=== PATIENT | male | born 1955 | race Caucasian/White ===

== ENCOUNTER 2018-03-02 14:35 | Outpatient (REF) | payer BC, SELFPAY ==
[2018-03-02 16:02] LABS: COMMENT (LAB VIEW ONLY) 84.26 mg/dL; Microalb ug/mg Crea 17.9 ug/mg Cr
[2018-03-02 19:31] LABS: Anion Gap 14.9 mmol/L (3-11); BUN 16 mg/dL (7-18); CO2 22.1 mmol/L (21.0-32.0); CREATININE 0.85 mg/dL (0.70-1.30); Calcium 9.3 mg/dL (8.5-10.1); Chloride 100 mmol/L (98-107); Glucose 296 mg/dL (70-100); Sodium 137 mmol/L (136-145)
== END 2018-03-02 14:55 ==
LOC: LBN 14:35
PROVIDERS: PCP Student in an Organized Health Care Education/Training Program; Visit Provider Student in an Organized Health Care Education/Training Program
CPT/HCPCS: 80048; 82043; 82570

== ENCOUNTER 2018-10-28 12:07 | Emergency (ER) | payer OTHER, BC, SELFPAY ==
[2018-10-28 12:00] VITALS: BP 136/84; PULSE 58; RESP 16; TEMP 36.7; O2SAT 97
[2018-10-28] MEDS: Lidocaine 5% Patch 1 PATCH (12:10)
--- NOTE | 2018-10-28 12:34 | DI.RAD_ITS ---
SYMPTOMS/DIAGNOSIS: BACK PAIN, POSTERIOR LOWER RIB PAIN S/P FALL PA AND LATERAL CHEST AND RIGHT RIBS: Comparison is made with chest x-ray of June,. The heart size is normal. The lungs appear clear. No pneumothorax is identified. There are old right rib fractures. No acute fractures are identified. There are mild degenerative changes of the right shoulder, as well as osteophytes in the thoracic spine. IMPRESSION: Old healed upright rib fractures. No acute rib fracture is identified. LUMBAR SPINE: There is no fracture, spondylolysis or spondylolisthesis. There are prominent endplate osteophytes at multiple levels. Disc space narrowing is noted, greatest on the right side at L3-4 and L4-5. IMPRESSION: Degenerative changes. No acute abnormality.
[2018-10-28] MEDS: Ketorolac 30 MG/ML VIAL IVP (12:44)
[2018-10-28] MEDS: Cyclobenzaprine 10 MG TAB PO (12:45)
--- NOTE | 2018-10-28 13:49 | DI.VRAD_ITS ---
EXAM: XR Right Ribs EXAM DATE/TIME: 10/28/2018 12:36 PM CLINICAL HISTORY: 63 years old, male; Other: Fall, posterior lower rib pain TECHNIQUE: Imaging protocol: XR Right ribs. Views: 2 views. COMPARISON: No relevant prior studies available. FINDINGS: Bones/joints: Multiple healed right rib fractures. No acute right rib fractures. Soft tissues: Normal. IMPRESSION: 1. Multiple healed right rib fractures. 2. No acute right rib fractures. EXAM: XR Chest, 2 Views EXAM DATE/TIME: 10/28/2018 12:36 PM CLINICAL HISTORY: 63 years old, male; Other: Fall, posterior lower rib pain TECHNIQUE: Imaging protocol: XR of the chest, 2 views. COMPARISON: No relevant prior studies available. FINDINGS: Lungs: Unremarkable. No consolidation. Pleural space: Unremarkable. No pleural effusion. No pneumothorax. Heart/Mediastinum: Unremarkable. No cardiomegaly. Bones/joints: Mild dextroscoliosis. Moderate thoracic spondylosis. IMPRESSION: No acute findings. Dictated and Authenticated by: Tyrone Caceres MD. Ordering:LIZY You MD
--- NOTE | 2018-10-28 13:50 | DI.VRAD_ITS ---
EXAM: XR Lumbosacral Spine, 4 or 5 Views EXAM DATE/TIME: 10/28/2018 12:36 PM CLINICAL HISTORY: 63 years old, male; Other: Back pain, S/P fall TECHNIQUE: Imaging protocol: XR of the lumbosacral spine, 4 or 5 views. COMPARISON: No relevant prior studies available. FINDINGS: Vertebrae: Mild levoscoliosis. Moderate to severe multilevel spine degenerative changes including degenerative disc disease, spondylosis and facet degenerative changes. Soft tissues: Normal. IMPRESSION: No acute findings. Dictated and Authenticated by: Tyrone Caceres MD. Ordering:LIZY You MD
--- NOTE | 2018-10-28 14:03 | ED.GENADUL_ITS ---
Discharge Plan Disposition Patient Disposition: HOME Condition: Stable Discharge Details Chief Complaint: Nk/Back Pain Clinical Impression: Back pain due to injury Primary Care Provider: Bella Duff ED Provider: Avelino Scott Home Meds and New Rx's Prescriptions: New cyclobenzaprine 10 mg tablet 10 mg PO TID PRN (Reason: muscle spasm) Qty: 10 RF: 0 Continued Lantus Solostar U-100 Insulin 100 unit/mL (3 mL) insulin pen 30 unit Sub-Q HS Qty: 5 RF: 2 metformin 500 mg tablet 500 mg PO HS Qty: 90 RF: 3 aspirin [Aspir-81] 81 MG tablet,delayed release (DR/EC) 81 mg PO DAILY RF: 0 magnesium oxide 500 MG tablet 500 mg PO DAILY Qty: 90 RF: 3 metformin 1,000 MG tablet 1,000 mg PO see instructions Qty: 180 RF: 3 atorvastatin [Lipitor] 40 mg tablet 40 mg PO DAILY Qty: 90 RF: 3 lisinopril 2.5 mg tablet 2.5 mg PO DAILY Qty: 90 RF: 3 omeprazole 40 mg capsule,delayed release(DR/EC) 40 mg PO DAILY Qty: 90 RF: 1 (DME) blood sugar diagnostic strip See Dose Instructions .ROUTE .MEDSUPPLY Qty: 180 RF: 3 (DME) lancets [OneTouch Delica Lancets] 33 gauge misc See Dose Instructions .ROUTE .MEDSUPPLY Qty: 200 RF: 3 (DME) pen needle, diabetic [Pen Needle] 31 gauge x 5/16 needle 1 ea Miscellaneous HS Qty: 100 RF: 3 Discharge Instructions Instructions: Back Pain (ED) Additional Instructions: He may continue to take [id number] pain medication as needed for discomfort along with prescribed medications. Due to you being on steroids please watch your blood sugar closely and stop steroids immediately if your sugars become extremely high or you have severe symptoms of hyperglycemia. You should follow-up with your primary care provider for reassessment if not improving over the next couple days. Stand Alone Forms: Work Release Referrals: Bella Duff, [Primary Care Provider] - (As needed for reassessment or if not improving) Discharge Data Discharge Date/Time-TO BE ENTERED AT DEPARTURE: 10/28/18 14:35 Medical Decision Making Patient presenting the emergency department chief complaint of back pain. Patient states that he fell at work 2-1/2 weeks ago and had slowly been improving but today when getting up and walking he felt a severe sharp spasm of his right lower back. Patient denies any other new recent injury or trauma, saddle anesthesia, fever chills, change in bowel or bladder function. Patient does have mostly paraspinal spasm and soft tissue tenderness to the right upper lumbar and lower thoracic with some rib tenderness noted on the right. Given the patient did have trauma do feel that radiological imaging is needed. Pending results patient given Flexeril and ketorolac for pain control. Review of radiological imaging shows old rib fractures but no acute rib fractures and degenerative disc disease of the back but no acute findings. Patient reassessed and states significant improvement in spasms that he felt comfortable going home. Patient was placed upon 20 mg of prednisone just for the next 3 days but closely precaution patient about elevated blood sugars while on medication. Otherwise patient prescribed Flexeril to use for spasms and to continue to use [id number] pain medication as needed. Return precautions discussed. After discussion of diagnosis and plan of care patient has no further needs, questions, or concerns and states clear understanding to return to the emergency department for any worsening symptoms. HPI General Mode of arrival: ambulatory . Date/Time Provider Initiated Documentation: 10/28/18 12:14 . Limitations to Documentation: no limitations . Information obtained by: patient, family and RN notes reviewed . History of Present Illness 63 year old M presents to the emergency department with the chief complaint of Back pain/injury, described as moderate, with intensity rated at 7. Related Data Home Medications Medication Instructions Recorded Confirmed aspirin [Aspir-81] 81 mg PO DAILY tab-cap 05/05/15 10/28/18 magnesium oxide 500 mg PO DAILY #90 tab-cap 02/03/16 10/28/18 metformin 1,000 mg PO see instructions #180 09/26/17 10/28/18 tab-cap atorvastatin 40 mg tablet 40 mg PO DAILY #90 tab-cap 12/22/17 10/28/18 lisinopril 2.5 mg tablet 2.5 mg PO DAILY #90 tab-cap 12/22/17 10/28/18 omeprazole 40 mg capsule,delayed 40 mg PO DAILY #90 tab-cap 04/04/18 10/28/18 release blood sugar diagnostic #180 each 07/06/18 10/28/18 lancets 33 gauge #200 each 07/06/18 10/28/18 pen needle, diabetic 31 gauge x #100 ndl 07/06/18 10/28/1808/10 insulin glargine 100 unit/mL (3 30 unit SUB-Q HS #5 ml 07/22/18 10/28/18 mL) subcutaneous pen metformin 500 mg tablet 500 mg PO HS #90 tab 09/07/18 10/28/18 cyclobenzaprine 10 mg PO TID PRN #10 tab 10/28/18 Previous Rx's Medication Instructions Recorded metformin 1,000 mg PO see instructions #180 09/26/17 tab-cap atorvastatin 40 mg tablet 40 mg PO DAILY #90 tab-cap 12/22/17 lisinopril 2.5 mg tablet 2.5 mg PO DAILY #90 tab-cap 12/22/17 omeprazole 40 mg capsule,delayed 40 mg PO DAILY #90 tab-cap 04/04/18 release blood sugar diagnostic #180 each 07/06/18 lancets 33 gauge #200 each 07/06/18 pen needle, diabetic 31 gauge x #100 ndl 07/06/1808/10 insulin glargine 100 unit/mL (3 30 unit SUB-Q HS #5 ml 07/22/18 mL) subcutaneous pen metformin 500 mg tablet 500 mg PO HS #90 tab 09/07/18 cyclobenzaprine 10 mg PO TID PRN #10 tab 10/28/18 Allergies Allergy/AdvReac Type Severity Reaction Status Date / Time No Known Allergies Allergy Verified 10/28/18 12:05 General Stated Complaint: Nk/Back Pain ZULY: 3 Review of Systems Constitutional Denies chills and Denies fever(s) Cardiovascular Denies chest pain and Denies dyspnea on exertion Respiratory Denies cough and Denies dyspnea on exertion Gastrointestinal Denies abdominal pain, Denies change in bowel habits, Denies diarrhea, Denies nausea and Denies vomiting Genitourinary Denies difficulty urinating and Denies urinary incontinence Musculoskeletal Reports as per HPI and Reports back pain Neurologic Denies sensory deficit PFSH Surgical History Removal of Implant, deep (04/28/16) Social History Smoking/Tobacco Use Status: Never Alcohol Intake: never Details: No ETOH since 1989 Drug use: Never Substance use type: does not use Adopted: No Foster care: No Household members: spouse and children Housing: house Number of Children: 2 Communication Needs: None Do you need help understanding health information?: Never current occupation: maintenance [employer] Pets and animals: Yes (2) Pets and animals: cat(s) Sexually active: Yes Do you think of yourself as: straight/heterosexual Current gender identity: male What is your relationship status?: Panel score (0-1 are the most socially isolated patients): 1 What type of physical activity do you participate in: walking Duration: 30-45 minutes/day Frequency: 5-6 times per week Laney/Mandaen: Christian Seatbelt use: always Drive intox or ride w/intox 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 Working smoke detector in home: Yes Fire extinguisher in home: Yes Carbon monox detector in home: Yes Do you feel safe at home: Yes Do you feel safe in your relationship?: Yes Victim of physical abuse: No Victim of emotional abuse: No Victim of sexual abuse: No Exam Const General: cooperative and no acute distress Orientation: alert, awake and oriented x3 Neck Neck: normal visual inspection, full ROM and no meningeal signs Resp Effort & Inspection: normal respiratory effort Auscultation: clear to auscultation bilaterally Cardio Rate: regular rate Rhythm: regular rhythm Heart Sounds: S1 normal and S2 normal GI Palpation: no hepatosplenomegaly, no aortic enlargement, no masses and no pulsatile masses Back/Spine/Pelvis Thoracic/Lumbar Spine: thoracic and lumbar spine normal to inspection, straight leg raise negative bilaterally, No mass, pain with thoraco-lumbar ROM, paraspinal tenderness and lumbar spinal tenderness Pelvis: no buttock tenderness and no sciatic notch tenderness Neuro General: alert, awake, oriented x3, moves all extremities, normal light touch, pain and propioception and no focal motor deficits DTR's: Rt Patellar: 2+, Lt Patellar: 2+, Rt Ankle: 2+ and Lt Ankle: 2+ Course Vital Signs Temperature 36.7 C 10/28/18 12:00 Pulse 58 L 10/28/18 12:00 Respiratory Rate 16 10/28/18 12:00 Blood Pressure 136/84 10/28/18 12:00 Pulse Oximetry 97 10/28/18 12:00 Temperature 36.7 C 10/28/18 12:00 Temperature Source Temporal Artery Scan 10/28/18 12:00 Pulse 58 L 10/28/18 12:00 Respiratory Rate 16 10/28/18 12:00 Respiratory Effort Non-Labored 10/28/18 12:02 Blood Pressure 136/84 10/28/18 12:00 Blood Pressure Position Supine 10/28/18 12:00 Pulse Oximetry 97 10/28/18 12:00 Oxygen Delivery Method Room Air 10/28/18 12:00 Oxygen Flow Rate 0 10/28/18 12:00 Pain Level 6 10/28/18 12:44
[2018-10-28] MEDS: predniSONE 20 MG TAB PO (14:21)
[2018-10-28 14:28] VITALS: BP 123/72; PULSE 52; RESP 16; O2SAT 98
== END 2018-10-28 14:35 | disposition home or self-care (01) ==
PROVIDERS: Emergency Provider Nurse Practitioner Family; PCP Student in an Organized Health Care Education/Training Program
DX: M54.5 Low back pain (principal); M47.816 Spondylosis without myelopathy or radiculopathy, lumbar region; X50.9XXA Other and unspecified overexertion or strenuous movements or postures, initial encounter
CPT/HCPCS: 96374; 99284; 71046; 71100; 72110; J1885; J7512

== ENCOUNTER 2019-09-13 12:00 | Outpatient (REF) | payer BC, SELFPAY ==
[2019-09-13 21:30] LABS: ALT 30 U/L (16-63); AST 23 U/L (15-37); Albumin 4.1 g/dL (3.4-5.0); Alkaline Phosphatase 106 U/L (46-116); Anion Gap 10.5 mmol/L (3-11); BUN 22 mg/dL (7-18); Bilirubin, Total 1.5 mg/dL (0.2-1.0); CO2 25.5 mmol/L (21.0-32.0); CREATININE 1.35 mg/dL (0.70-1.30); Calcium 9.3 mg/dL (8.5-10.1); Calculated LDL 93 mg/dL (<100); Chloride 103 mmol/L (98-107); Cholesterol 160 mg/dL (<200); Estimated GFR 53.21 (mL/min/1.73m2); Glucose 166 mg/dL (74-106); HDL Cholesterol 55 mg/dL (40-60); Magnesium 1.8 mg/dL (1.8-2.4); Potassium 3.8 mmol/L (3.5-5.1); Sodium 139 mmol/L (136-145); TSH (W/Ref FT4) 2.33 uIU/mL (0.36-3.74); Total Protein 6.9 g/dL (6.4-8.2); Triglyceride 62 mg/dL (<150)
== END 2019-09-13 12:20 ==
LOC: LBN 12:00
PROVIDERS: PCP Student in an Organized Health Care Education/Training Program; Visit Provider Student in an Organized Health Care Education/Training Program
DX: E11.65 Type 2 diabetes mellitus with hyperglycemia (principal); E83.42 Hypomagnesemia; R11.2 Nausea with vomiting, unspecified; R19.7 Diarrhea, unspecified; R79.89 Other specified abnormal findings of blood chemistry; Z13.220 Encounter for screening for lipoid disorders
CPT/HCPCS: 80053; 80061; 83735; 84443

== ENCOUNTER 2019-12-20 02:07 | Outpatient (CLI) | payer BC, SELFPAY ==
--- NOTE | 2019-12-20 07:00 | DI.US_ITS ---
EXAM: US ABDOMEN CLINICAL HISTORY: RT FLANK AND RUQ PAIN,R10.11,R10.9,?LT HYDRO OR GB PATHOLOGY TECHNIQUE: Ultrasound abdomen performed using standard protocol. COMPARISON: No previous for comparison. FINDINGS: ABDOMINAL AORTA AND IVC: Visualized portions normal caliber. PANCREAS: Normal where visualized. LIVER: Normal. Hepatopedal flow in the Portal Vein. The liver measures 16.9 cm. GALLBLADDER: No evidence of cholelithiasis. No evidence of wall thickening. No pericholecystic fluid identified. BILIARY SYSTEM: Common bile duct measures 8 mm. No intrahepatic biliary ductal dilation. BARONE'S SIGN: Negative. KIDNEYS: Kidneys are symmetric in size. No evidence of renal calculi. No evidence of hydronephrosis. 0.8 cm round echogenic focus in the right kidney. This may represent a benign lesion such as an kolby omyolipoma. SPLEEN: Not enlarged. ASCITES: None seen. IMPRESSION: 1. No nephrolithiasis or cholelithiasis. No hydronephrosis. DATA REPOSITORY:
== END 2019-12-20 02:27 ==
PROVIDERS: PCP Student in an Organized Health Care Education/Training Program; Visit Provider Student in an Organized Health Care Education/Training Program
DX: R10.11 Right upper quadrant pain (principal); R10.9 Unspecified abdominal pain
CPT/HCPCS: 76700

== ENCOUNTER 2020-06-26 09:36 | Outpatient (CLI) | payer BC, SELFPAY | END 2020-06-26 09:37 | disposition home or self-care (01) | LOC: RT 09:39 | PROVIDERS: PCP Student in an Organized Health Care Education/Training Program; Visit Provider Student in an Organized Health Care Education/Training Program | CPT/HCPCS: 94762 ==

== ENCOUNTER 2020-06-30 04:36 | Outpatient (CLI) | payer BC, SELFPAY ==
[2020-06-30 12:41] LABS: Anion Gap 14.1 mmol/L (3-11); BUN 18 mg/dL (7-18); CO2 21.9 mmol/L (21.0-32.0); CREATININE 1.1 mg/dL (0.70-1.30); Calcium 9.2 mg/dL (8.5-10.1); Chloride 106 mmol/L (98-107); Glucose 146 mg/dL (74-106); Potassium 4.6 mmol/L (3.5-5.1); Sodium 142 mmol/L (136-145)
== END 2020-06-30 04:37 | disposition home or self-care (01) ==
LOC: LBO 04:36
PROVIDERS: PCP Student in an Organized Health Care Education/Training Program; Visit Provider Student in an Organized Health Care Education/Training Program
DX: R79.89 Other specified abnormal findings of blood chemistry (principal)
CPT/HCPCS: 36415; 80048

== ENCOUNTER 2020-12-17 00:35 | Outpatient (CLI) | payer BC, SELFPAY ==
[2020-12-17 09:53] LABS: HGB 15.4 g/dL (13.5-17.5); MCH 31.2 pg (27.0-33.0); MCHC 32.8 % (32.0-36.0); MCV 95.1 fL (80-95); Platelet Count 282 10^3/uL (130-400); RBC 4.94 10^6/uL (4.36-5.78); RDW 12.9 % (11.8-14.1); RDW-SD 45.2 fL
[2020-12-17 11:03] LABS: Calculated LDL 71 mg/dL (<100); Cholesterol 135 mg/dL (<200); Folate 7.2 ng/mL (8.6-20.0); HDL Cholesterol 53 mg/dL (40-60); Triglyceride 57 mg/dL (<150)
[2020-12-17 17:09] LABS: Vitamin B12 426 pg/mL (211-911)
== END 2020-12-17 00:36 | disposition home or self-care (01) ==
PROVIDERS: PCP Student in an Organized Health Care Education/Training Program; Visit Provider Student in an Organized Health Care Education/Training Program
DX: Z91.89 Other specified personal risk factors, not elsewhere classified; Z13.220 Encounter for screening for lipoid disorders; G62.9 Polyneuropathy, unspecified; G25.81 Restless legs syndrome; R25.1 Tremor, unspecified; G47.9 Sleep disorder, unspecified; R53.83 Other fatigue; K21.9 Gastro-esophageal reflux disease without esophagitis; E11.65 Type 2 diabetes mellitus with hyperglycemia; T38.3X5A Adverse effect of insulin and oral hypoglycemic [antidiabetic] drugs, initial encounter
CPT/HCPCS: 36415; 80061; 85027; 82607; 82746

== ENCOUNTER 2021-02-05 03:20 | Outpatient (CLI) | payer BC, SELFPAY ==
--- NOTE | 2021-02-05 09:00 | NS.NUTBLAN_ITS ---
Berto was referred for [facility] for diabetes self management education. DM meds: lantus 36 u at HS, 1000 mg metformin BID, 10 mg Jardiance qd. A1c (01/20/21): 8%, lipids wnl. Reports blood sugars all over the place. This is possible with current A1C if has high glycemic variability. Session today focused on how the Rik 2 continuous glucose monitor works, sensor placed and manager learning programed. Reviewed questions and provided diabetic education. Reviewed sick day rules and encouraged him to log meals and count carbohydrates for consistent intakes during day. Follow up scheduled for 02/17/21 at 9 am for data down load. Will fax glucose data to PCP at that time.
== END 2021-02-05 03:21 | disposition home or self-care (01) ==
PROVIDERS: PCP Student in an Organized Health Care Education/Training Program; Visit Provider Dietitian, Registered
DX: E11.9 Type 2 diabetes mellitus without complications (principal); Z79.4 Long term (current) use of insulin; Z79.84 Long term (current) use of oral hypoglycemic drugs; Z71.3 Dietary counseling and surveillance
CPT/HCPCS: 97802

== ENCOUNTER 2021-02-17 01:42 | Outpatient (CLI) | payer BC, SELFPAY ==
--- NOTE | 2021-02-17 09:00 | NS.NUTBLAN_ITS ---
Berto returns after wearing a Rik 2 Continuous Glucose Monitor for 14 days. DM Meds: 36 units lantus q HS, 10 mg jardiance qd, 1000 mg metformin BID Diet Recall: Ambulatory Glucose Profile: Dates: 02/04/21-02/17/21 Actual Goal Average Blood Sugar: 146 mg/dl 80-120 mg/dl Glucose Management Indicato: 6.8% < 7% Glucose Variability: 30.1% < 36% Time In Range (70-180 mg/dl) 81% >70% Below 70 mg/dl: 0% < 4% Below 54 mg/dl : 0% < 1% Above 180 mg/dl: 17% < 25% Above 250 mg/dl: 2% < 5% Overall, current life style and Dm medications managing diabetes in ideal parameters despite many menu items not ideal ( fried chicken, cookies, popcorn, ritz crackers). Reviewed glycemic excursions and identified foods that cause glucose elevations. Berto states that alarm on CGM is helpful as it helps him reduce his portions and makes him more aware of importance activity/exercise is to diabetes management. CGM an excellent tool for Berto and is helping him manage his diabetes with minimal insulin. His goal is to get off insulin all together. Encouraged him to continue to work with PCP and CGM. May be able to reduce basal insulin per PCP recommendations based on AGP report. If reducing lantus by 10%, recommend increasing Jaridiance to 25 mg qd. No follow up planned at this time. Will follow up prn.
== END 2021-02-17 01:43 | disposition home or self-care (01) ==
LOC: DS 01:43
PROVIDERS: PCP Student in an Organized Health Care Education/Training Program; Visit Provider Dietitian, Registered
DX: Z71.3 Dietary counseling and surveillance (principal); E11.9 Type 2 diabetes mellitus without complications; Z79.4 Long term (current) use of insulin; Z79.84 Long term (current) use of oral hypoglycemic drugs
CPT/HCPCS: 97803

== ENCOUNTER 2021-03-05 15:06 | Outpatient (REF) | payer BC, SELFPAY ==
[2021-03-05 18:04] LABS: Anion Gap 10.7 mmol/L (3-11); BUN 17 mg/dL (7-18); CO2 25.3 mmol/L (21.0-32.0); CREATININE 1.1 mg/dL (0.70-1.30); Calcium 9.1 mg/dL (8.5-10.1); Chloride 106 mmol/L (98-107); Glucose 118 mg/dL (74-106); Potassium 4.3 mmol/L (3.5-5.1); Sodium 142 mmol/L (136-145)
== END 2021-03-05 15:07 | disposition home or self-care (01) ==
LOC: LBN 15:06
PROVIDERS: PCP Student in an Organized Health Care Education/Training Program; Visit Provider Student in an Organized Health Care Education/Training Program
DX: R79.89 Other specified abnormal findings of blood chemistry (principal); Z79.1 Long term (current) use of non-steroidal anti-inflammatories (NSAID)
CPT/HCPCS: 80048

== ENCOUNTER 2021-03-05 15:27 | Outpatient (CLI) | payer BC, SELFPAY ==
--- NOTE | 2021-03-05 15:00 | DI.RAD_ITS ---
Exam(s) XR LUMBAR SPINE COMP W FLEX/EX EXAM: XR LUMBAR SPINE COMP W FLEX/EX CLINICAL HISTORY: eval new pain, flexion pain M54.40 LUMBARGO W/ SCIATICA. TECHNIQUE: 2D digital imaging was performed. COMPARISON: CR XR lumbar spine complete from 10/28/2018 FINDINGS: No evidence of fracture nor listhesis. No pars defects. Multilevel chronic degenerative disc diseas e again noted involving each level. Probable spinal canal stenosis. Sacroiliac joints appear unrema rkable. IMPRESSION: Chronic multilevel degenerative disc disease. Very little change compared to 06/13 DATA REPOSITORY: RADIATION DOSE DELIVERED:
== END 2021-03-05 15:47 ==
PROVIDERS: PCP Student in an Organized Health Care Education/Training Program; Visit Provider Student in an Organized Health Care Education/Training Program
DX: M51.36 Other intervertebral disc degeneration, lumbar region; M54.42 Lumbago with sciatica, left side
CPT/HCPCS: 72114

== ENCOUNTER 2021-04-30 16:20 | Outpatient (CLI) | payer BC, SELFPAY ==
--- NOTE | 2021-04-30 11:00 | DI.RAD_ITS ---
Exam(s) XR LUMBAR SPINE COMP W FLEX/EX EXAM: XR LUMBAR SPINE COMP W FLEX/EX CLINICAL HISTORY: re-eval stability in prep for MRI post fall [id number] fall m48.061 spinal TECHNIQUE: COMPARISON: CR XR LUMBAR SPINE COMP W FLEX/EX from 03/05/2021 FINDINGS: Seven views were obtained including flexion and extension lateral views. There is multi level mild l oss of disc height throughout the region surveyed consistent with disc degeneration. There are moder ate hypertrophic endplate and facet changes. There is no evidence of spondylolysis or spondylolisthesis. The SI joints appear intact. There is no compression fracture. Flexion and extension views are unremarkable. IMPRESSION: Degenerative changes of the lumbar spine as described above RADIATION DOSE DELIVERED: Total DLP
== END 2021-04-30 16:40 ==
PROVIDERS: PCP Student in an Organized Health Care Education/Training Program; Visit Provider Student in an Organized Health Care Education/Training Program
DX: M54.59 Other low back pain (principal); M48.061 Spinal stenosis, lumbar region without neurogenic claudication; W00.9XXD Unspecified fall due to ice and snow, subsequent encounter; M51.36 Other intervertebral disc degeneration, lumbar region
CPT/HCPCS: 72114

== ENCOUNTER 2021-10-06 02:58 | Outpatient (CLI) | payer MEDICARE, SELFPAY ==
[2021-10-06 09:26] LABS: ALT 27 U/L (16-63); AST 24 U/L (15-37); Albumin 3.9 g/dL (3.4-5.0); Alkaline Phosphatase 98 U/L (46-116); Anion Gap 13.7 mmol/L (3-11); BUN 24 mg/dL (7-18); CO2 25.3 mmol/L (21.0-32.0); CREATININE 1.4 mg/dL (0.70-1.30); Calcium 9.4 mg/dL (8.5-10.1); Calculated LDL 110 mg/dL (<100); Chloride 103 mmol/L (98-107); Cholesterol 184 mg/dL (<200); Glucose 121 mg/dL (74-106); HDL Cholesterol 64 mg/dL (40-60); Potassium 3.9 mmol/L (3.5-5.1); Sodium 142 mmol/L (136-145); TSH (W/Ref FT4) 3.13 uIU/mL (0.36-3.74); Total Protein 7.1 g/dL (6.4-8.2); Triglyceride 51 mg/dL (<150)
== END 2021-10-06 02:59 | disposition home or self-care (01) ==
LOC: LBO 02:58
PROVIDERS: PCP Student in an Organized Health Care Education/Training Program; Visit Provider Student in an Organized Health Care Education/Training Program
DX: I10 Essential (primary) hypertension (principal); K21.9 Gastro-esophageal reflux disease without esophagitis; R25.1 Tremor, unspecified; E11.65 Type 2 diabetes mellitus with hyperglycemia; Z79.4 Long term (current) use of insulin; E78.5 Hyperlipidemia, unspecified
CPT/HCPCS: 36415; 80053; 80061; 84443

== ENCOUNTER 2021-10-27 03:25 | Outpatient (CLI) | payer MEDICARE, SELFPAY ==
[2021-10-27 07:43] LABS: Anion Gap 7.2 mmol/L (3-11); BUN 19 mg/dL (7-18); CO2 23.8 mmol/L (21.0-32.0); CREATININE 1.1 mg/dL (0.70-1.30); Calcium 8.9 mg/dL (8.5-10.1); Chloride 106 mmol/L (98-107); Glucose 157 mg/dL (74-106); Potassium 3.7 mmol/L (3.5-5.1); Sodium 137 mmol/L (136-145)
== END 2021-10-27 03:26 | disposition home or self-care (01) ==
LOC: LBO 03:25
PROVIDERS: PCP Student in an Organized Health Care Education/Training Program; Visit Provider Student in an Organized Health Care Education/Training Program
DX: R79.89 Other specified abnormal findings of blood chemistry (principal)
CPT/HCPCS: 36415; 80048

== ENCOUNTER 2021-12-07 04:26 | Outpatient (CLI) | payer MEDICARE, SELFPAY ==
--- NOTE | 2021-12-07 14:00 | NS.NUTBLAN_ITS ---
Berto was referred for diabetes self management, need for home glucometer and to evaluate for hypglycemia risk and education around prevention. Met with Berto 2020. He had recently received a Rik 2 continuous glucose monitor and it helped him tremendously in controlling his blood sugars and making better meal choices. Berto reports that he has had about 6 months of frustration with his Dm scripts and supplies. He is no longer receiving his CGM supplies and for a couple of months did not have his DM meds due to insurance issues after long term. He now has his DM meds which include 38 units lantus HS, 25 mg Jardiance qd, 1000 mg metformin BID. Since restarting his DM meds, he reports finger sticks indicate good glycemic management most of the time. A couple weeks ago, however, when he was NOT taking ANY DM meds, he woke up feeling shaky and weak. He tested his sugar and it read 59 mg/dl. He ate some jam and it returned to normal range. Suspect low blood sugar due to excessive exercise previous day (6 mile walk) while not meeting carbohydrate and caloric needs). Berto reports he sometimes only eats breakfast. Most recent A1C: 7.5% (10/16/21). Down from 9% in June 2021. A1C reading in September indicates blood sugars while NOT TAKING DM meds. Overall, good glycemic control with lifestyle and diet. Since retiring has increased exercise to 6 miles daily every morning. He notes his appetite has decreased and often only eats 2 times daily. Reviewed importance of eating a minimum of 100 grams carbs on days of walking up to 6 miles. May be able to start lowering dose of lantus by 10% if fasting sugars below 150 mg/dl. [facility] no longer has glucometers to give away. Instruced Berto to purchase a glucometer for $20 at [facility]. Will follow up with Karan Moralez at [facility] re: CGM supplies.
== END 2021-12-07 04:27 | disposition home or self-care (01) ==
LOC: DS 04:28
PROVIDERS: PCP Student in an Organized Health Care Education/Training Program; Visit Provider Dietitian, Registered
DX: E11.9 Type 2 diabetes mellitus without complications (principal); Z79.4 Long term (current) use of insulin; Z79.84 Long term (current) use of oral hypoglycemic drugs; Z71.3 Dietary counseling and surveillance
CPT/HCPCS: 97803

== ENCOUNTER 2022-07-05 00:24 | Outpatient (CLI) | payer MEDICARE, SELFPAY ==
--- NOTE | 2022-07-05 07:00 | DI.RAD_ITS ---
Exam(s) XR KNEE RT 4V AP,LAT,RICCI,PAT EXAM: XR KNEE RT 4V AP,LAT,RICCI,PAT CLINICAL HISTORY: evaluate joint; ? bone spur/chip,RT KNEE PAIN, M25.561. TECHNIQUE: 2D digital imaging was performed of the right knee. Four views obtained. Merchant, AP, la teral and PA tunnel views were obtained. COMPARISON: CR RIGHT KNEE 3 VIEWS from 12/05/2016 FINDINGS: BONES: No acute fracture is present. No bony destructive lesion is seen. JOINTS: The knee is normally aligned. There is moderate narrowing in the medial femoral tibial joint. Tricompartment periarticular spurring is present. There is no joint effusion. SOFT TISSUE: Normal. IMPRESSION: Moderate osteoarthritis. DATA REPOSITORY: RADIATION DOSE DELIVERED:
== END 2022-07-05 00:44 ==
LOC: DI 00:24
PROVIDERS: PCP Student in an Organized Health Care Education/Training Program; Visit Provider Student in an Organized Health Care Education/Training Program
DX: E11.65 Type 2 diabetes mellitus with hyperglycemia (principal); M25.561 Pain in right knee
CPT/HCPCS: 73564

== ENCOUNTER 2022-07-09 14:40 | Observation (INO) | payer MEDICARE, SELFPAY ==
[2022-07-09 14:43] VITALS: BP 129/81; PULSE 74; RESP 18; TEMP 36.8; O2SAT 97
--- NOTE | 2022-07-09 14:57 | ED.GENADUL_ITS ---
Discharge Plan Disposition Patient Disposition: Admit to [facility] Discharge Details Clinical Impression: Adverse effects of medication, DEO (acute kidney injury), Dehydration Primary Care Provider: Bella Duff ED Provider: Carlos Carranza and New Rx's Prescriptions: No Action magnesium oxide 400 mg magnesium tablet 400 mg PO DAILY aspirin 81 mg tablet,delayed release (DR/EC) 81 mg PO DAILY Qty: 90 3RF atorvastatin [Lipitor] 40 mg tablet 40 mg PO DAILY Qty: 90 3RF ibuprofen 600 mg tablet 600 mg PO TID Qty: 30 1RF Rx Instructions: acute back pain lisinopril 2.5 mg tablet 2.5 mg PO DAILY Qty: 90 3RF metformin 1,000 mg tablet 1,000 mg PO BID Qty: 180 3RF (DME) FreeStyle Rik 2 [place] Misc See Rx Instructions .ROUTE .MEDSUPPLY Qty: 1 0RF Rx Instructions: As directed (DME) FreeStyle Rik 2 Sensor Kit See Rx Instructions .ROUTE .MEDSUPPLY Qty: 2 11RF Rx Instructions: As directed omeprazole 20 mg capsule,delayed release(DR/EC) 20 mg PO DAILY Qty: 30 0RF famotidine 20 mg tablet 20 mg PO BID Qty: 180 1RF Rx Instructions: Continue on H2Blkr 2/day as it ctlld reflux. Re-assess. Ozempic 0.25 mg or 0.5 mg (2 mg/3 mL) pen injector 0.25 mg subcut QWEEK Qty: 3 1RF Hold Instructions: Adverse Reaction Rx Instructions: Trial, x4 weeks; plan on 0.50/week afterwards (DME) TENS UNIT See Rx Instructions .Route .MEDSUPPLY Qty: 1 0RF Rx Instructions: As directed per PT, expecting ongoing need. empagliflozin 25 mg tablet 25 mg PO DAILY Qty: 90 3RF Rx Instructions: increase from 10mg (07/23/21). (DME) pen needle, diabetic [Pen Needle] 31 gauge x 08/10 needle 1 ea Miscellaneous HS Qty: 100 3RF Rx Instructions: BD ultra fine pen needles 5 mm, 06/10 31G to administer Lantus Dx: E11.65 bupropion HCl [Wellbutrin XL] 150 mg tablet extended release 24 hr 150 mg PO QAM Qty: 90 3RF citalopram 20 mg tablet 10 mg PO DAILY Qty: 45 3RF cyclobenzaprine 10 mg tablet 10 mg PO BID PRN (Reason: muscle spasm) Qty: 30 1RF Rx Instructions: Use for acute mm spasms gabapentin 100 mg capsule 100 mg PO QHS Qty: 90 3RF insulin glargine [Lantus Solostar U-100 Insulin] 100 unit/mL (3 mL) insulin pen 38 unit Sub-Q HS Qty: 36 3RF Rx Instructions: to lower fasting blood sugar, control diabetes E11.65 (increase dose to 33units, and then in 1 week increase again to 36units if needed to maintain fasting blood sugar between 100-140mg/dl) (DME) FreeStyle Lite Strips Strip See Rx Instructions .Route Qty: 100 6RF Rx Instructions: As directed to check blood glucose up to 4x daily. to use with freestyle lite glucometer. To maintain HbA1C less than 9% DX: E11.9 Glucagon Emergency Kit (human) 1 mg recon soln 1 mg subcut Q20M PRN (Reason: hypoglycemia) Qty: 2 3RF Rx Instructions: until target blood sugar attained Medical Decision Making Patient presenting with vomiting, diarrhea, abdominal discomfort presumably secondary to new medication, Ozempic. His vital signs look good. His exam is otherwise reassuring with no abdominal tenderness. We will plan IV with fluids, Zofran, check labs and reevaluate. Patient's laboratory studies with normal CBC, evidence of DEO and dehydration on chemistry with a BUN of 42 and creatinine at 2.1. Bicarb is 19 with a gap of 16. Glucose 176 and given recent hypoglycemic event doubt DKA. Liver function looks decent. I did add a VBG which shows patient to be alkalotic with a pH of 7.48 and a PCO2 of 25, bicarb 19. Patient has received 2 L LR here but will need observation admission for hydration overnight as well as control of vomiting and diarrhea prior to discharge. He should be taken off Ozempic. Case discussed with hospitalist who is in agreement with admission. Patient and aware of need of admission and consent to same. Medical Records Medical records reviewed: Yes I reviewed the patient's medical records. Medical records narrative: Reviewed his last couple of clinic visit notes. Lab Data Lab results reviewed: Yes I reviewed the patient's lab results. Lab results narrative: DEO with low bicarb and anion gap likely from severe dehydration. HPI General Date/Time Provider Initiated Documentation: 07/09/22 14:41 . Information obtained by: patient . HPI Narrative: Patient presents to ED with nausea, vomiting, diarrhea, abdominal discomfort for the last week since starting Ozempic. Patient had follow-up visit with PCP at the end of May. It was determined that his blood sugars were not being well controlled. He was started on Ozempic with his first injection occurring 9 days ago. Developed nausea, vomiting, diarrhea the following day. Seemed to tolerate it reasonably well that week. Took his second injection 2 days ago. S alla then he has had severe vomiting and diarrhea, some epigastric discomfort. He denies having any fever, cough, chest pain, shortness of breath, back pain, urinary symptoms. He had 1 episode of hypoglycemia 3 days ago. Related Data Home Medications Medication Instructions Recorded Confirmed magnesium oxide 400 mg PO DAILY 05/27/20 06/25/22 TENS UNIT #1 ea 05/14/21 06/25/22 aspirin 81 mg tablet,delayed 81 mg PO DAILY #90 tab-caps 09/22/21 06/25/22 release atorvastatin 40 mg tablet (Lipitor) 40 mg PO DAILY #90 tab-caps 09/22/21 06/25/22 ibuprofen 600 mg tablet 600 mg PO TID #30 tabs 09/22/21 06/25/22 lisinopril 2.5 mg tablet 2.5 mg PO DAILY #90 tab-caps 09/22/21 06/25/22 metformin 1,000 mg tablet 1,000 mg PO BID T2 DM #180 tab-caps 09/22/21 06/25/22 pen needle, diabetic 31 gauge x ##100 10/23/21 06/25/22 5/16 (Pen Needle) bupropion HCl 150 mg 24 hr tablet, 150 mg PO QAM #90 tabs 11/19/21 06/25/22 extended release (Wellbutrin XL) citalopram 20 mg tablet 10 mg PO DAILY #45 tabs 11/19/21 06/25/22 cyclobenzaprine 10 mg tablet 10 mg PO BID PRN muscle spasm #30 11/19/21 06/25/22 tabs gabapentin 100 mg capsule 100 mg PO QHS #90 caps 08/25/22 03/31/23 insulin glargine 100 unit/mL (3 38 unit (0.38 mL) subcut HS to 11/19/21 06/25/22 mL) subcutaneous pen (Lantus lower A1C, <9, DM, E11.65 #36 mL Solostar U-100 Insulin) famotidine 20 mg tablet 20 mg PO BID #180 tabs 03/23/22 06/25/22 flash glucose scanning reader #1 ea 03/23/22 06/25/22 (FreeStyle Rik 2 [place]) flash glucose sensor (FreeStyle #2 ea 03/23/22 06/25/22 Rik 2 Sensor kit) omeprazole 20 mg capsule,delayed 20 mg PO DAILY #30 caps 03/23/22 06/25/22 release empagliflozin 25 mg tablet 25 mg PO DAILY #90 tabs 06/23/22 06/25/22 semaglutide 0.25 mg or 0.5 mg (2 0.25 mg (0.4 mL) subcut QWEEK #3 mL 06/26/22 06/26/22 mg/3 mL) subcutaneous pen injector (PernixData) blood sugar diagnostic (FreeStyle #100 ea 07/07/22 Lite Strips) glucagon 1 mg solution for 1 mg subcut Q20M PRN hypoglycemia 07/07/22 injection (Glucagon Emergency Kit) #2 ea Previous Rx's Medication Instructions Recorded TENS UNIT #1 ea 05/14/21 aspirin 81 mg tablet,delayed 81 mg PO DAILY #90 tab-caps 09/22/21 release atorvastatin 40 mg tablet (Lipitor) 40 mg PO DAILY #90 tab-caps 09/22/21 ibuprofen 600 mg tablet 600 mg PO TID #30 tabs 09/22/21 lisinopril 2.5 mg tablet 2.5 mg PO DAILY #90 tab-caps 09/22/21 metformin 1,000 mg tablet 1,000 mg PO BID T2 DM #180 tab-caps 09/22/21 pen needle, diabetic 31 gauge x ##100 10/23/2108/10 (Pen Needle) bupropion HCl 150 mg 24 hr tablet, 150 mg PO QAM #90 tabs 11/19/21 extended release (Wellbutrin XL) citalopram 20 mg tablet 10 mg PO DAILY #45 tabs 11/19/21 cyclobenzaprine 10 mg tablet 10 mg PO BID PRN muscle spasm #30 11/19/21 tabs gabapentin 100 mg capsule 100 mg PO QHS #90 caps 11/19/21 insulin glargine 100 unit/mL (3 38 unit (0.38 mL) subcut HS to 11/19/21 mL) subcutaneous pen (Lantus lower A1C, <9, DM, E11.65 #36 mL Solostar U-100 Insulin) famotidine 20 mg tablet 20 mg PO BID #180 tabs 03/23/22 flash glucose scanning reader #1 ea 03/23/22 (FreeStyle Rik 2 [place]) flash glucose sensor (FreeStyle #2 ea 03/23/22 Rik 2 Sensor kit) omeprazole 20 mg capsule,delayed 20 mg PO DAILY #30 caps 03/23/22 release empagliflozin 25 mg tablet 25 mg PO DAILY #90 tabs 06/23/22 semaglutide 0.25 mg or 0.5 mg (2 0.25 mg (0.4 mL) subcut QWEEK #3 mL 06/26/22 mg/3 mL) subcutaneous pen injector (OzempApplango) blood sugar diagnostic (FreeStyle #100 ea 07/07/22 Lite Strips) glucagon 1 mg solution for 1 mg subcut Q20M PRN hypoglycemia 07/07/22 injection (Glucagon Emergency Kit) #2 ea Allergies Allergy/AdvReac Type Severity Reaction Status Date / Time semaglutide [From Ozempic] AdvReac Severe Other (See Verified 07/09/22 14:12 Comment) General Stated Complaint: Nausea/Vomit/Diar ZULY: 3 Review of Systems Narrative: Per HPI PFSH All Active Problems (Updated 07/09/22 @ 16:29 by Carlos Carranza MD) Adverse effects of medication (Acute) DEO (acute kidney injury) (Acute) Dehydration (Acute) Arthritis of right knee (Acute ~06/2022) Moderate OA; worse medially (see x-ray) Type 2 diabetes mellitus with hyperglycemia (Chronic 11/05/11) goal A1c<7.0; new dx 10/2011; insulin added 10/2016 ... Out of control, A1C > 14 06/08/18, trmendous personal stressors ( ill, other).. not caring for himself; some level of denial with DM. Doubled insulin 06/08, need FBG values ... requesting extra coaching/support via CDE and SHANTAL triage.Appreciate great CDE support from EO, he is compliant and jeffrey insulin. FS q weekly, call to remind him... 08/02[x] 08/16[ ]. Reviewed #s, symptoms ... 08/18/18 A1C [ ] 09/08 Type 2 diabetes mellitus without complication (Chronic 11/05/11) DM poorly controlled, Glargine d/'c and lantus started 11/12, Goal <7. DM again poorly controlled in May 2018 (A1C 14), but with terrific gains by August 2018 (A1C 8.7). Working closely with CDE. Continued good BG levels per random log brought in; still trying to coordinate all 3 of use to meet; [employer] Rik eligibility? 10/06/18 DEO (acute kidney injury) (Acute) Elevated Creatinine, improved, 10/2021 Uses self-applied continuous glucose monitoring device (Acute) Working with [employer] [employer] .. Insurance coverage problems (Acute) Retiring 08/2021: which meds can be d/c'd? which can be generic ($0) with new Medicare-based insurance coverage.. Back pain due to injury (Acute) NOT the same as usual acute/chronic lumbar back MM spasms (spasms in different regiomn .. conc @ hip vs buttock).. upper extremety use now affecting lower back (as when original disc injury occurred, ??) Nerve damage (Acute) Spinal stenosis at L4-L5 level (Acute) Muscle spasm of back (Acute) Floored by back muscle spasm (stripping floor @ work and slipped) ... Went home, heating pad. Rested, but sudden spasm returned with need for ambulance and ED. Back pain of lumbar region with sciatica (Acute) Hx of spinal surgery (Chronic) Lumbar Spine (Dr. Galeas, [facility]), discs removed.. fusion (?) ((?)) Stress due to illness of family member (Acute) experienced CVA, left arm weakness .. improving with PT. Granddtr of COVID ([place]). September 2020. Difficulty sleeping (Acute) Serious sleeping issues, shilpa when mulling about return to work situation. Functional tremor (Acute) Tremor (Acute) Resting, Action/Postural (?). Shaking vs pillrolling observed in clinic; report of shaking when trying to take a photo @ work. Adjustment disorder (Chronic) Irritable, and not sleeping. Increased workload with poor workplace support plus family stressors (COVID has affected extended family) . Elevated TSH (Chronic 02/12/15) Increased thyroid stimulating hormone level (Acute 02/12/15) Gastroesophageal reflux disease (Chronic 05/12/07) [place] SLEEP STUDY 04/2007, REFLUX INTERRUPTED SLEEP; no sleep apnea; H. pylori Rx 09/2014 Obesity (BMI 30.0-34.9) (Chronic 12/08/09) GOAL 220-215 Atrial arrhythmia (Acute 05/24/13) Medical History DM w/o complication type II, uncontrolled (11/05/11) goal A1c<7.0; new dx 10/2011 Esophageal reflux (05/12/07) [place] SLEEP STUDY 04/2007, REFLUX INTERRUPTED SLEEP; no sleep apnea Hyperlipidemia (10/29/11) LDL GOAL <100 (diabetes) Hypertension Syncope (03/06/13) recurrent; Wolf: EKG L axis; 2wk event neg, neg Reveal Monitor implant ([place]); Neg NCHead CT; neg Tilt table; nl EEG; NL ECHO Varicose veins of bilateral lower extremities with pain (09/2018) Hx varicosities, but recent Hx crazy itching .. he's itched to bleeding. Possible pain/irritation/inflamm signals perceived as pruritic (?) Trial Tyl, Ibu .. 10/06/18 Surgical History Removal of Implant, deep (04/28/16) heart monitor removal - reveal loop recorder S/P hernia surgery S/P lumbar spine operation L3 removed? .. Family History Maternal Grandmother Diabetes Hyperlipidemia Hypertension Social History Smoking/Tobacco Use Status: Never Smoking risk assessment performed?: Yes Alcohol Intake: never Details: No ETOH since 1989 Drug use: Never Substance use type: does not use Adopted: No Caregiver/Support person: No Foster care: No Household members: family Housing: house Number of Children: 2 number of grandchildren: 1 Communication Needs: None Do you need help understanding health information?: Never current occupation: maintenance [employer] Pets and animals: Yes (2) Pets and animals: cat(s) Sexually active: Yes Do you think of yourself as: straight/heterosexual Current gender identity: male What is your relationship status?: How often do you talk on the phone with friends or family?: twice per week Do you belong to any clubs or organized social groups?: no Panel score (0-1 are the most socially isolated patients): 1 What type of physical activity do you participate in: walking Duration: 30-45 minutes/day Frequency: daily [place]/Mormonism: Roman Catholic Seatbelt use: always Drive intox or ride 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 HEENT: NC/AT. Normal facial exam. Eyes: Normal conjunctiva and sclera. Neck: Supple. Trachea midline. Lungs: Normal respiratory effort. Lungs are clear. Cor: RRR without murmur/gallop. Good radial pulses. GI: Soft. NT/ND. No guarding or rebound. Neuro: A+O x 3. Normal speech, mentation, gait. Cranial nerves II - XII grossly intact. No gross motor or sensory deficit. Ext: No C/C/E. Skin: Warm and dry without rash. Course Vital Signs Vital signs: Vital Signs Temperature 98.2 F 07/09/22 14:43 Pulse 74 07/09/22 14:43 Respiratory Rate 18 07/09/22 14:43 Blood Pressure 129/81 07/09/22 14:43 Pulse Oximetry 97 07/09/22 14:43 Temperature 98.2 F 07/09/22 14:43 Temperature Source Temporal Artery Scan 07/09/22 14:43 Pulse 74 07/09/22 14:43 Respiratory Rate 18 07/09/22 14:43 Respiratory Effort Normal 07/09/22 14:48 Blood Pressure 129/81 07/09/22 14:43 Blood Pressure Position Sitting 07/09/22 14:43 Pulse Oximetry 97 07/09/22 14:43 Oxygen Delivery Method Room Air 07/09/22 14:43 Oxygen Flow Rate 0 07/09/22 14:43 Pain Level 6 07/09/22 14:43
[2022-07-09] MEDS: Ondansetron 4 MG/2 ML VIAL IVP (15:15)
[2022-07-09] MEDS: Lactated Ringers 2,000 ML 1000 ML IV (15:16)
[2022-07-09 15:20] LABS: Abs Immature Grans 0.03 10^3/uL (0.0-0.06); Absolute Basophil Count 0.03 10^3/uL (0.0-0.2); Absolute Eosinophil Count 0.08 10^3/uL (0.0-0.7); Absolute Lymphocyte Count 3.44 10^3/uL (1.2-3.4); Absolute Monocyte Count 0.97 10^3/uL (0.1-0.8); Basophils % 0.3; Eosinophils % 0.8; HCT 47.8 % (40.0-50.0); HGB 16.2 g/dL (13.5-17.5); Immature Grans % 0.3; Lymphocytes % 33.6; MCH 30.9 pg (27.0-33.0); MCHC 33.9 % (32.0-36.0); MCV 91 fL (80-95); MPV 10.3 fL (8.0-11.0); Monocytes % 9.5; Neutrophils % 55.5; Platelet Count 319 10^3/uL (130-400); RBC 5.24 10^6/uL (4.36-5.78); RDW 13.2 % (11.8-14.1); RDW-SD 44.9 fL; WBC 10.25 10^3/uL (4.4-10.8)
[2022-07-09 15:42] LABS: ALT 24 U/L (16-63); AST 22 U/L (15-37); Albumin 4.4 g/dL (3.4-5.0); Alkaline Phosphatase 109 U/L (46-116); Anion Gap 16.3 mmol/L (3-11); BUN 42 mg/dL (7-18); Bilirubin, Total 2.2 mg/dL (0.2-1.0); CO2 18.7 mmol/L (21.0-32.0); CREATININE 2.1 mg/dL (0.70-1.30); Calcium 9.9 mg/dL (8.5-10.1); Chloride 104 mmol/L (98-107); Estimated GFR 33.87 (mL/min/1.73m2); Glucose 176 mg/dL (74-106); Lipase 33 U/L (16-77); Potassium 4.5 mmol/L (3.5-5.1); Sodium 139 mmol/L (136-145); Total Protein 7.9 g/dL (6.4-8.2)
[2022-07-09 16:11] LABS: BE (Venous) -5 mmol/L (-2-3); HCO3 (Venous) 19 mmol/L (23-28); O2 Sat (Venous) 63 %; TCO2 (Venous) 17 mmol/L (24-29); pCO2 (Venous) 25 mmHg (41-51); pH (Venous) 7.48 (7.31-7.41); pO2 (Venous) 29 mmHg
[2022-07-09 17:25] LABS: Source Nasal/Nares
--- NOTE | 2022-07-09 17:42 | W.PM.HP.N ---
Date of service: 07/09/22 Time of Service: 17:42 Assessment and Plan Assessment and plan (1) DEO (acute kidney injury): Status: Acute Assessment and plan: Secondary to emesis and diarrhea from Ozempic; common adverse side effect. After the liter of LR given in the ED he was feeling much better and felt like advancing his diet from clear liquids. Creatinine 2.1; baseline appears to be in the 1.1 ballpark. He will receive LR overnight at 150ml/hr. BMP in AM (2) Type 2 diabetes mellitus with hyperglycemia: Status: Chronic Assessment and plan: Stopped Ozempic Cont Lantus but at lower dose than his normal; anticipate that he eats less tonight. Cont Jardiance. SS correction insulin dosing. Diabetic diet; clear liquids advance as tolerated. Qualifiers: Diabetes mellitus technician terminal and repeater insulin use: with retirement use Qualified Code(s): E11.65 - Type 2 diabetes mellitus with hyperglycemia; Z79.4 - long-term (current) use of insulin (3) Dehydration: Status: Acute Assessment and plan: Secondary to N/V/diarrhea related to Ozempic. Hydration; IV and oral. History of Present Illness History of Present Illness Chief Complaint: Vomiting and diarrhea Narrative: This is a 67 yo male with a PMH of DM2, HLD, HTN, GERD. He presented to the ED with N/V, diarrhea and abdominal discomfort. The onset of symptoms was 8 days ago which was the day after he administered the first dose of Ozempic that was prescribed. The symptoms worsened after he administered the second injection of Ozempic 2 days prior to admission. He endorsed not being able to keep any food or fluids down since that injection. No F/C, melena/hemotochezia. He did mention one episode of hypoglycemia 3 days prior to presentation. In the ED his CBC was normal. Creatinine elevated at 2.1 (baseline 1.1). BUN 42. Anion Gap of 16. Glucose 176. VBG pH of 7.48. He was administered 2L of LR in the ED. Admitted for observation and further hydration. PFSH All Active Problems (Updated 07/09/22 @ 16:29 by Carlos Carranza MD) Adverse effects of medication (Acute) DEO (acute kidney injury) (Acute) Dehydration (Acute) Arthritis of right knee (Acute ~06/2022) Moderate OA; worse medially (see x-ray) Type 2 diabetes mellitus with hyperglycemia (Chronic 11/05/11) goal A1c<7.0; new dx 10/2011; insulin added 10/2016 ... Out of control, A1C > 14 06/08/18, trmendous personal stressors ( ill, other).. not caring for himself; some level of denial with DM. Doubled insulin 06/08, need FBG values ... requesting extra coaching/support via CDE and SHANTAL triage.Appreciate great CDE support from EO, he is compliant and jeffrey insulin. FS q weekly, call to remind him... 08/02[x] 08/16[ ]. Reviewed #s, symptoms ... 08/18/18 A1C [ ] 09/08 Type 2 diabetes mellitus without complication (Chronic 11/05/11) DM poorly controlled, Glargine d/'c and lantus started 11/12, Goal <7. DM again poorly controlled in May 2018 (A1C 14), but with terrific gains by August 2018 (A1C 8.7). Working closely with CDE. Continued good BG levels per random log brought in; still trying to coordinate all 3 of use to meet; FreeStyle Rik eligibility? 10/06/18 DEO (acute kidney injury) (Acute) Elevated Creatinine, improved, 10/2021 Uses self-applied continuous glucose monitoring device (Acute) Working with [facility] .. Insurance coverage problems (Acute) Retiring 08/2021: which meds can be d/c'd? which can be generic ($0) with new Medicare-based insurance coverage.. Back pain due to injury (Acute) NOT the same as usual acute/chronic lumbar back MM spasms (spasms in different regiomn .. conc @ hip vs buttock).. upper extremety use now affecting lower back (as when original disc injury occurred, ??) Nerve damage (Acute) Spinal stenosis at L4-L5 level (Acute) Muscle spasm of back (Acute) Floored by back muscle spasm (stripping floor @ work and slipped) ... Went home, heating pad. Rested, but sudden spasm returned with need for ambulance and ED. Back pain of lumbar region with sciatica (Acute) Hx of spinal surgery (Chronic) Lumbar Spine (Dr. Galeas, [facility]), discs removed.. fusion (?) ((?)) Stress due to illness of family member (Acute) experienced CVA, left arm weakness .. improving with PT. Granddtr of COVID ([place]). September 2020. Difficulty sleeping (Acute) Serious sleeping issues, shilpa when mulling about return to work situation. Functional tremor (Acute) Tremor (Acute) Resting, Action/Postural (?). Shaking vs pillrolling observed in clinic; report of shaking when trying to take a photo @ work. Adjustment disorder (Chronic) Irritable, and not sleeping. Increased workload with poor workplace support plus family stressors (COVID has affected extended family) . Elevated TSH (Chronic 02/12/15) Increased thyroid stimulating hormone level (Acute 02/12/15) Gastroesophageal reflux disease (Chronic 05/12/07) [place] SLEEP STUDY 04/2007, REFLUX INTERRUPTED SLEEP; no sleep apnea; H. pylori Rx 09/2014 Obesity (BMI 30.0-34.9) (Chronic 12/08/09) GOAL 220-215 Atrial arrhythmia (Acute 05/24/13) Medical History DM w/o complication type II, uncontrolled (11/05/11) goal A1c<7.0; new dx 10/2011 Esophageal reflux (05/12/07) [place] SLEEP STUDY 04/2007, REFLUX INTERRUPTED SLEEP; no sleep apnea Hyperlipidemia (10/29/11) LDL GOAL <100 (diabetes) Hypertension Syncope (03/06/13) recurrent; Wolf: EKG L axis; 2wk event neg, neg Reveal Monitor implant ([place]); Neg NCHead CT; neg Tilt table; nl EEG; NL ECHO Varicose veins of bilateral lower extremities with pain (09/2018) Hx varicosities, but recent Hx crazy itching .. he's itched to bleeding. Possible pain/irritation/inflamm signals perceived as pruritic (?) Trial Tyl, Ibu .. 10/06/18 Surgical History Removal of Implant, deep (04/28/16) heart monitor removal - reveal loop recorder S/P hernia surgery S/P lumbar spine operation L3 removed? .. Family History Maternal Grandmother Diabetes Hyperlipidemia Hypertension Social History Smoking/Tobacco Use Status: Never Smoking risk assessment performed?: Yes Alcohol Intake: never Details: No ETOH since 1989 Drug use: Never Substance use type: does not use Adopted: No Caregiver/Support person: No Foster care: No Household members: family Housing: house Number of Children: 2 number of grandchildren: 1 Communication Needs: None Do you need help understanding health information?: Never current occupation: [employer] Res[employer]ations Pets and animals: Yes (2) Pets and animals: cat(s) Sexually active: Yes Do you think of yourself as: straight/heterosexual Current gender identity: male What is your relationship status?: How often do you talk on the phone with friends or family?: twice per week Do you belong to any clubs or organized social groups?: no Panel score (0-1 are the most socially isolated patients): 1 What type of physical activity do you participate in: walking Duration: 30-45 minutes/day Frequency: daily [place]/L[employer]-Day: Episcopal Seatbelt use: always Drive intox or ride w/intox paratransit driver: No Working smoke detector in home: Yes Fire extinguisher in home: Yes Carbon monox detector in home: Yes Do you feel safe at home: Yes Do you feel safe in your relationship?: Yes Victim of physical abuse: No Victim of emotional abuse: No Victim of sexual abuse: No Meds Allergies and Home Medications Allergies Allergy/AdvReac Type Severity Reaction Status Date / Time semaglutide [From Ozempic] AdvReac Severe Other (See Verified 07/09/22 14:12 Comment) Home Medications Medication Instructions Recorded Confirmed Type magnesium oxide 400 mg PO DAILY 05/27/20 07/09/22 History TENS UNIT #1 ea 05/14/21 06/25/22 Rx aspirin 81 mg tablet,delayed 81 mg PO DAILY #90 tab-caps 09/22/21 07/09/22 Rx release atorvastatin 40 mg tablet (Lipitor) 40 mg PO DAILY #90 tab-caps 09/22/21 07/09/22 Rx lisinopril 2.5 mg tablet 2.5 mg PO DAILY #90 tab-caps 09/22/21 07/09/22 Rx metformin 1,000 mg tablet 1,000 mg PO BID T2 DM #180 tab-caps 09/22/21 07/09/22 Rx pen needle, diabetic 31 gauge x ##100 10/23/21 06/25/22 Rx 5/16 (Pen Needle) bupropion HCl 150 mg 24 hr tablet, 150 mg PO QAM #90 tabs 11/19/21 07/09/22 Rx extended release (Wellbutrin XL) citalopram 20 mg tablet 10 mg PO DAILY #45 tabs 11/19/21 07/09/22 Rx cyclobenzaprine 10 mg tablet 10 mg PO BID PRN muscle spasm #30 11/19/21 07/09/22 Rx tabs gabapentin 100 mg capsule 100 mg PO QHS #90 caps 11/19/21 07/09/22 Rx insulin glargine 100 unit/mL (3 38 unit (0.38 mL) subcut HS to 11/19/21 07/09/22 Rx mL) subcutaneous pen (Lantus lower A1C, <9, DM, E11.65 #36 mL Solostar U-100 Insulin) famotidine 20 mg tablet 20 mg PO BID #180 tabs 03/23/22 07/09/22 Rx flash glucose scanning reader #1 ea 03/23/22 06/25/22 Rx (FreeStyle Rik 2 [place]) flash glucose sensor (FreeStyle #2 ea 03/23/22 06/25/22 Rx Rik 2 Sensor kit) omeprazole 20 mg capsule,delayed 20 mg PO DAILY #30 caps 03/23/22 07/09/22 Rx release empagliflozin 25 mg tablet 25 mg PO DAILY #90 tabs 06/23/22 07/09/22 Rx semaglutide 0.25 mg or 0.5 mg (2 0.25 mg (0.4 mL) subcut QWEEK #3 mL 06/26/22 06/26/22 Rx mg/3 mL) subcutaneous pen injector (Ozempic) blood sugar diagnostic (FreeStyle #100 ea 07/07/22 Rx Lite Strips) glucagon 1 mg solution for 1 mg subcut Q20M PRN hypoglycemia 07/07/22 07/09/22 Rx injection (Glucagon Emergency Kit) #2 ea ibuprofen 600 mg tablet 600 mg PO PRN PRN 07/09/22 07/09/22 History Exam Narrative Exam Narrative: Const: WDWN male in NAD but diaphoretic. HEENT: Sclera clear. PERRL. Neck: Supple. Trachea midline. Lungs: Normal respiratory effort. Lungs are clear. CV: RRR without murmur/gallop. S1S2. GI: Soft. NT/ND. No guarding or rebound. Neuro: A+O x 3. Normal speech, mentation, gait. No gross motor or sensory deficit. Ext: No C/C/E. Skin: Warm and dry without rash. Psych: Affect appropriate. Results Labs 07/09/22 14:55 07/09/22 14:55 Labs: Laboratory Results - last 24 hr 07/09/22 07/09/22 07/09/22 14:55 14:55 16:05 WBC 10.25 RBC 5.24 Hgb 16.2 Hct 47.8 MCV 91 MCH 30.9 MCHC 33.9 RDW 13.2 Plt Count 319 MPV 10.3 Immature Gran % 0.3 Neutrophils % 55.5 Lymphocytes % 33.6 Monocytes % 9.5 Eosinophils % 0.8 Basophils % 0.3 Nucleated RBC % 0.0 Absolute Neutrophils 5.70 Absolute Lymphocytes 3.44 H Absolute Monocytes 0.97 H Absolute Eosinophils 0.08 Absolute Basophils 0.03 VBG pH 7.48 H VBG pCO2 25 L VBG pO2 29 VBG HCO3 19 L VBG Total CO2 17 L VBG O2 Saturation 63 VBG Base Excess -5 L Sodium 139 Potassium 4.5 Chloride 104 Carbon Dioxide 18.7 L Anion Gap 16.3 H BUN 42 H Creatinine 2.1 H Est GFR (CKD-EPI 2020) 33.87 Glucose 176 H Calcium 9.9 Magnesium 2.0 Total Bilirubin 2.2 H AST 22 ALT 24 Alkaline Phosphatase 109 Total Protein 7.9 Albumin 4.4 Lipase 33 COVID-19 Source 07/09/22 17:22 WBC RBC Hgb Hct MCV MCH MCHC RDW Plt Count MPV Immature Gran % Neutrophils % Lymphocytes % Monocytes % Eosinophils % Basophils % Nucleated RBC % Absolute Neutrophils Absolute Lymphocytes Absolute Monocytes Absolute Eosinophils Absolute Basophils VBG pH VBG pCO2 VBG pO2 VBG HCO3 VBG Total CO2 VBG O2 Saturation VBG Base Excess Sodium Potassium Chloride Carbon Dioxide Anion Gap BUN Creatinine Est GFR (CKD-EPI 2020) Glucose Calcium Magnesium Total Bilirubin AST ALT Alkaline Phosphatase Total Protein Albumin Lipase COVID-19 Source Nasal/Nares Last Vital Signs Temp 36.8 C 07/09/22 14:43 Pulse 74 07/09/22 14:43 Resp 18 07/09/22 14:43 BP 129/81 07/09/22 14:43 Pulse Ox 97 07/09/22 14:43 Time Spent Time spent with Patient: <40 minutes Time was spent: preparing to see the patient(eg.review tests), ordering medications,tests, procedures, referring, communicating with other health client care specialist and indepentently interpreting results
[2022-07-09 17:55] VITALS: BP 134/76; PULSE 60; RESP 16; TEMP 36.3; O2SAT 99
[2022-07-09 17:56] LABS: COVID-19 PCR Negative (Negative)
[2022-07-09 17:57] VITALS: BP 134/76; PULSE 60; RESP 16; TEMP 36.3; O2SAT 99
[2022-07-09 19:23] LABS: Bilirubin Small (Negative); Blood Negative (Negative); Clarity Clear (Clear); Glucose Negative (Negative); Ketones 40 mg/dL (Negative); Leukocyte Esterase Negative (Negative); Nitrite Negative (Negative); Specific Gravity >= 1.030 (1.005-1.025); Urobilinogen 0.2 mg/dL (Up to 0.2); pH 5.5 (5-8)
[2022-07-09] MEDS: Famotidine 20 MG TAB PO (21:03)
[2022-07-09] MEDS: Gabapentin 100 MG CAP PO (21:03)
[2022-07-09] MEDS: Insulin Glargine 300 UNITS/3 ML PEN 20 UNITS SC (21:21)
[2022-07-09 23:24] VITALS: BP 126/78; PULSE 68; RESP 20; TEMP 37.4; O2SAT 97
[2022-07-10] MEDS: Lactated Ringers 1,000 ML 150 ML IV (02:10)
[2022-07-10 06:15] VITALS: BP 114/73; PULSE 60; RESP 16; TEMP 36.4; O2SAT 97
[2022-07-10 06:53] LABS: Anion Gap 7.7 mmol/L (3-11); BUN 23 mg/dL (7-18); CO2 25.3 mmol/L (21.0-32.0); CREATININE 1.2 mg/dL (0.70-1.30); Calcium 8.7 mg/dL (8.5-10.1); Chloride 106 mmol/L (98-107); Estimated GFR 66.28 (mL/min/1.73m2); Glucose 100 mg/dL (74-106); Potassium 3.5 mmol/L (3.5-5.1); Sodium 139 mmol/L (136-145)
--- NOTE | 2022-07-10 07:55 | DSE_ITS ---
Date of service: 07/10/22 Time of Service: 07:55 DS: Diagnosis Discharge Diagnosis (1) DEO (acute kidney injury): Status: Acute Asessment and Plan: Resolved with IV hydration. Tolerating oral intake. Creatinine improved from 2.1 to 1.2 (2) Type 2 diabetes mellitus with hyperglycemia: Status: Chronic Asessment and Plan: He will resume is usual home regimen of medications but has stopped Ozempic. He will discuss any further changes with his PCP. A1c 9.1 on 06/22/22. (3) Dehydration: Status: Acute Asessment and Plan: As above. Discharge Plan Disposition Patient Disposition: Home Condition: Good Discharge Details Reason For Visit: Acute Kidney Injury, Dehydration Admit Date/Time: 07/09/22 16:24 Admit Provider: Charli Hannon Attending Provider: Charli Hannon Primary Care Provider: [facility] Hospital Course: This is a 67 yo male with a PMH of DM2, HLD, HTN, GERD.? He presented to the ED with N/V, diarrhea and abdominal discomfort.? The onset of symptoms was 8 days ago which was the day after he administered the first dose of Ozempic that was prescribed.? The symptoms worsened after he administered the second injection of Ozempic 2 days prior to admission.? He endorsed not being able to keep any food or fluids down since that injection.? No F/C, melena/hematochezia.? He did mention one episode of hypoglycemia 3 days prior to presentation. In the ED his CBC was normal.? Creatinine elevated at 2.1 (baseline 1.1). BUN 42.? Anion Gap of 16.? Glucose 176.? VBG pH of 7.48.? He was administered 2L of LR in the ED.? Admitted for observation and further hydration.? ? See Diagnosis PCP f/u in 1 week Home Meds and New Rx's Prescriptions: Continued magnesium oxide 400 mg magnesium tablet 400 mg PO DAILY aspirin 81 mg tablet,delayed release (DR/EC) 81 mg PO DAILY Qty: 90 3RF atorvastatin [Lipitor] 40 mg tablet 40 mg PO DAILY Qty: 90 3RF lisinopril 2.5 mg tablet 2.5 mg PO DAILY Qty: 90 3RF metformin 1,000 mg tablet 1,000 mg PO BID Qty: 180 3RF omeprazole 20 mg capsule,delayed release(DR/EC) 20 mg PO DAILY Qty: 30 0RF famotidine 20 mg tablet 20 mg PO BID Qty: 180 1RF Rx Instructions: Continue on H2Blkr 2/day as it ctlld reflux. Re-assess. empagliflozin 25 mg tablet 25 mg PO DAILY Qty: 90 3RF Rx Instructions: increase from 10mg (07/23/21). bupropion HCl [Wellbutrin XL] 150 mg tablet extended release 24 hr 150 mg PO QAM Qty: 90 3RF citalopram 20 mg tablet 10 mg PO DAILY Qty: 45 3RF cyclobenzaprine 10 mg tablet 10 mg PO BID PRN (Reason: muscle spasm) Qty: 30 1RF Rx Instructions: Use for acute mm spasms gabapentin 100 mg capsule 100 mg PO QHS Qty: 90 3RF insulin glargine [Lantus Solostar U-100 Insulin] 100 unit/mL (3 mL) insulin pen 38 unit Sub-Q HS Qty: 36 3RF Rx Instructions: to lower fasting blood sugar, control diabetes E11.65 (increase dose to 33units, and then in 1 week increase again to 36units if needed to maintain fasting blood sugar between 100-140mg/dl) Glucagon Emergency Kit (human) 1 mg recon soln 1 mg subcut Q20M PRN (Reason: hypoglycemia) Qty: 2 3RF Rx Instructions: until target blood sugar attained ibuprofen 600 mg tablet 600 mg PO PRN PRN Rx Instructions: acute back pain Discontinued Ozempic 0.25 mg or 0.5 mg (2 mg/3 mL) pen injector 0.25 mg subcut QWEEK Qty: 3 1RF Hold Instructions: Adverse Reaction Rx Instructions: Trial, x4 weeks; plan on 0.50/week afterwards No Action (DME) FreeStyle Rik 2 [place] Misc See Rx Instructions .ROUTE .MEDSUPPLY Qty: 1 0RF Rx Instructions: As directed (DME) FreeStyle Rik 2 Sensor Kit See Rx Instructions .ROUTE .MEDSUPPLY Qty: 2 11RF Rx Instructions: As directed (DME) TENS UNIT See Rx Instructions .Route .MEDSUPPLY Qty: 1 0RF Rx Instructions: As directed per PT, expecting ongoing need. (DME) pen needle, diabetic [Pen Needle] 31 gauge x 08/10 needle 1 ea Miscellaneous HS Qty: 100 3RF Rx Instructions: BD ultra fine pen needles 5 mm, 06/10 31G to administer Lantus Dx: E11.65 (DME) FreeStyle Lite Strips Strip See Rx Instructions .Route Qty: 100 6RF Rx Instructions: As directed to check blood glucose up to 4x daily. to use with freestyle lite glucometer. To maintain HbA1C less than 9% DX: E11.9 Discharge Instructions Stand Alone Forms: Nursing Discharge Form Referrals: Bella Duff DO [Primary Care Provider] - (Please call to make a follow up appointment for 1 week) Activity:: Activity as Tolerated Equipment/Supplies:: No Equipment Needed Diet:: Resume home diabetic diet Discharge Orders Discharge Orders: Discharge Order (Routine); Ordered 07/10/22 Ordered By: Charli Hannon DS: Summary Time Spent with Patient providing and/or coordinating discharge services: Less than 30 minutes Status at Discharge Functional status at discharge: independent ambulation Overall status at discharge: patient is back to baseline Mental Status: mental status grossly normal Speech and Movement: speech and movement normal Mood: congruent mood Affect: normal affect Exam Narrative Exam Narrative: Const: WDWN male sitting in chair. Conversant and cooperative. HEENT: Sclera clear. PERRL. Neck: Supple. Trachea midline. Lungs: Normal respiratory effort. Lungs are clear. CV: RRR without murmur/gallop. S1S2. GI: Soft. NT/ND. No guarding or rebound. Neuro: A+O x 3. Normal speech, mentation, gait. No gross motor or sensory deficit. Ext: No C/C/E. Skin: Warm and dry without rash. Psych: Affect appropriate/bright Psych Mental Status: mental status grossly normal Speech and Movement: speech and movement normal Mood: congruent mood Affect: normal affect DS: Data Vitals/I&O Vitals and I&O: Vital Signs Temperature 36.4 C L 07/10/22 06:15 Temperature Source Tympanic 07/10/22 06:15 Pulse 60 07/10/22 06:15 Pulse Rhythm Regular 07/09/22 17:57 Respiratory Rate 16 07/10/22 06:15 Respiratory Effort Normal 07/09/22 17:57 Respiratory Depth Normal 07/09/22 17:57 Respiratory Pattern Normal 07/09/22 17:57 Blood Pressure 114/73 07/10/22 06:15 Blood Pressure Position Sitting 07/09/22 14:43 Pulse Oximetry 97 07/10/22 06:15 Oxygen Delivery Method Room Air 07/10/22 06:15 Oxygen Flow Rate 0 07/10/22 06:15 Pain Level 0 07/09/22 17:57 Intake & Output 07/09/22 07/09/22 07/10/22 11:59 23:59 11:59 Intake Total 2400 / 2400 Output Total 200 / 200 1250 / 1250 Balance 2200 / 2200 -1250 / -1250 Weight 90.7 kg Intake: IV 2009 Oral 390 / 390 Output: Urine 200 / 200 1250 / 1250 Other: Urine Color Dark Vandana Yellow Urine Appearance Clear Cloudy Urine Odor Normal Normal Voiding Methods Urinal Urinal Data Completed and Pending Labs on day of discharge: Labs from last 24 hours 07/10/22 07/09/22 07/09/22 06:07 17:50 17:22 WBC RBC Hgb Hct MCV MCH MCHC RDW Plt Count MPV Immature Gran % Neutrophils % Lymphocytes % Monocytes % Eosinophils % Basophils % Nucleated RBC % Absolute Neutrophils Absolute Lymphocytes Absolute Monocytes Absolute Eosinophils Absolute Basophils VBG pH VBG pCO2 VBG pO2 VBG HCO3 VBG Total CO2 VBG O2 Saturation VBG Base Excess Sodium 139 Potassium 3.5 D Chloride 106 Carbon Dioxide 25.3 Anion Gap 7.7 BUN 23 H Creatinine 1.2 Est GFR (CKD-EPI 2020) 66.28 Glucose 100 Calcium 8.7 Magnesium Total Bilirubin AST ALT Alkaline Phosphatase Total Protein Albumin Lipase Urine Color Yellow Urine Clarity Clear Urine pH 5.5 Ur Specific [place] >= 1.030 H Urine Protein Negative Urine Ketones 40 H Urine Blood Negative Urine Nitrite Negative Urine Bilirubin Small H Urine Urobilinogen 0.2 Ur Leukocyte Esterase Negative Urine Glucose Negative COVID-19 Source Nasal/Nares SARS-CoV-2 (PCR) Negative 07/09/22 07/09/22 07/09/22 16:05 14:55 14:55 WBC 10.25 RBC 5.24 Hgb 16.2 Hct 47.8 MCV 91 MCH 30.9 MCHC 33.9 RDW 13.2 Plt Count 319 MPV 10.3 Immature Gran % 0.3 Neutrophils % 55.5 Lymphocytes % 33.6 Monocytes % 9.5 Eosinophils % 0.8 Basophils % 0.3 Nucleated RBC % 0.0 Absolute Neutrophils 5.70 Absolute Lymphocytes 3.44 H Absolute Monocytes 0.97 H Absolute Eosinophils 0.08 Absolute Basophils 0.03 VBG pH 7.48 H VBG pCO2 25 L VBG pO2 29 VBG HCO3 19 L VBG Total CO2 17 L VBG O2 Saturation 63 VBG Base Excess -5 L Sodium 139 Potassium 4.5 Chloride 104 Carbon Dioxide 18.7 L Anion Gap 16.3 H BUN 42 H Creatinine 2.1 H Est GFR (CKD-EPI 2020) 33.87 Glucose 176 H Calcium 9.9 Magnesium 2.0 Total Bilirubin 2.2 H AST 22 ALT 24 Alkaline Phosphatase 109 Total Protein 7.9 Albumin 4.4 Lipase 33 Urine Color Urine Clarity Urine pH Ur Specific [place] Urine Protein Urine Ketones Urine Blood Urine Nitrite Urine Bilirubin Urine Urobilinogen Ur Leukocyte Esterase Urine Glucose COVID-19 Source SARS-CoV-2 (PCR) PFSH All Active Problems Adverse effects of medication (Acute) DEO (acute kidney injury) (Acute) Dehydration (Acute) Arthritis of right knee (Acute ~06/2022) Moderate OA; worse medially (see x-ray) Type 2 diabetes mellitus with hyperglycemia (Chronic 11/05/11) goal A1c<7.0; new dx 10/2011; insulin added 10/2016 ... Out of control, A1C > 14 06/08/18, trmendous personal stressors ( ill, other).. not caring for himself; some level of denial with DM. Doubled insulin 06/08, need FBG values ... requesting extra coaching/support via CDE and SHANTAL triage.Appreciate great CDE support from EO, he is compliant and jeffrey insulin. FS q weekly, call to remind him... 08/02[x] 08/16[ ]. Reviewed #s, symptoms ... 08/18/18 A1C [ ] 09/08 Type 2 diabetes mellitus without complication (Chronic 11/05/11) DM poorly controlled, Glargine d/'c and lantus started 11/12, Goal <7. DM again poorly controlled in May 2018 (A1C 14), but with terrific gains by August 2018 (A1C 8.7). Working closely with CDE. Continued good BG levels per random log brought in; still trying to coordinate all 3 of use to meet; [place] R[facility] eligibility? 10/06/18 DEO (acute kidney injury) (Acute) Elevated Creatinine, improved, 10/2021 Uses self-applied continuous glucose monitoring device (Acute) Working with [facility] .. Insurance coverage problems (Acute) Retiring 08/2021: which meds can be d/c'd? which can be generic ($0) with new Medicare-based insurance coverage.. Back pain due to injury (Acute) NOT the same as usual acute/chronic lumbar back MM spasms (spasms in different regiomn .. conc @ hip vs buttock).. upper extremety use now affecting lower back (as when original disc injury occurred, ??) Nerve damage (Acute) Spinal stenosis at L4-L5 level (Acute) Muscle spasm of back (Acute) Floored by back muscle spasm (stripping floor @ work and slipped) ... Went home, heating pad. Rested, but sudden spasm returned with need for ambulance and ED. Back pain of lumbar region with sciatica (Acute) Hx of spinal surgery (Chronic) Lumbar Spine (Dr. Galeas, [facility]), discs removed.. fusion (?) ((?)) Stress due to illness of family member (Acute) experienced CVA, left arm weakness .. improving with PT. Granddtr of COVID ([place]). September 2020. Difficulty sleeping (Acute) Serious sleeping issues, shilpa when mulling about return to work situation. Functional tremor (Acute) Tremor (Acute) Resting, Action/Postural (?). Shaking vs pillrolling observed in clinic; report of shaking when trying to take a photo @ work. Adjustment disorder (Chronic) Irritable, and not sleeping. Increased workload with poor workplace support plus family stressors (COVID has affected extended family) . Elevated TSH (Chronic 02/12/15) Increased thyroid stimulating hormone level (Acute 02/12/15) Gastroesophageal reflux disease (Chronic 05/12/07) [place] SLEEP STUDY 04/2007, REFLUX INTERRUPTED SLEEP; no sleep apnea; H. pylori Rx 09/2014 Obesity (BMI 30.0-34.9) (Chronic 12/08/09) GOAL 220-215 Atrial arrhythmia (Acute 05/24/13) Medical History DM w/o complication type II, uncontrolled (11/05/11) goal A1c<7.0; new dx 10/2011 Esophageal reflux (05/12/07) [place] SLEEP STUDY 04/2007, REFLUX INTERRUPTED SLEEP; no sleep apnea Hyperlipidemia (10/29/11) LDL GOAL <100 (diabetes) Hypertension Syncope (03/06/13) recurrent; Wolf: EKG L axis; 2wk event neg, neg Reveal Monitor implant ([place]); Neg NCHead CT; neg Tilt table; nl EEG; NL ECHO Varicose veins of bilateral lower extremities with pain (09/2018) Hx varicosities, but recent Hx crazy itching .. he's itched to bleeding. Possible pain/irritation/inflamm signals perceived as pruritic (?) Trial Tyl, Ibu .. 10/06/18 Surgical History Removal of Implant, deep (04/28/16) heart monitor removal - reveal loop recorder S/P hernia surgery S/P lumbar spine operation L3 removed? .. Family History Maternal Grandmother Diabetes Hyperlipidemia Hypertension Social History Smoking/Tobacco Use Status: Never Smoking risk assessment performed?: Yes Alcohol Intake: never Details: No ETOH since 1989 Drug use: Never Substance use type: does not use Adopted: No Caregiver/Support person: No Foster care: No Household members: family Housing: house Number of Children: 2 number of grandchildren: 1 Communication Needs: None Do you need help understanding health information?: Never current occupation: maintenance [employer] Pets and animals: Yes (2) Pets and animals: cat(s) Sexually active: Yes Do you think of yourself as: straight/heterosexual Current gender identity: male What is your relationship status?: How often do you talk on the phone with friends or family?: twice per week Do you belong to any clubs or organized social groups?: no Panel score (0-1 are the most socially isolated patients): 1 What type of physical activity do you participate in: walking Duration: 30-45 minutes/day Frequency: daily Laney/Faith: Taoism Seatbelt use: always Drive intox or ride w/intox cab driver: No Working smoke detector in home: Yes Fire extinguisher in home: Yes Carbon monox detector in home: Yes Do you feel safe at home: Yes Do you feel safe in your relationship?: Yes Victim of physical abuse: No Victim of emotional abuse: No Victim of sexual abuse: No Time Spent with Patient Time Spent with Patient: <45 minutes Time was spent: preparing to see the patient(eg.review tests), obtaining and/or reviewing separately otained hiistory, indepentently interpreting results and counseling the patient
[2022-07-10] MEDS: Famotidine 20 MG TAB PO (08:39)
[2022-07-10] MEDS: Omeprazole 20 MG CAPCR PO (08:39)
[2022-07-10] MEDS: Aspirin E.C. 81 MG TABEC PO (08:39)
[2022-07-10] MEDS: Empaglifozin 25 MG TAB PO (08:40)
[2022-07-10] MEDS: buPROPion-XL 150 MG TABCR PO (08:40)
[2022-07-10] MEDS: Atorvastatin 40 MG TAB PO (08:40)
[2022-07-10] MEDS: Magnesium Oxide 400 MG TAB PO (08:40)
== END 2022-07-10 09:38 | disposition home or self-care (01) ==
LOC: ER 16:29 → MS 17:36
PROVIDERS: Admitting Provider Family Medicine; Emergency Provider Emergency Medicine; PCP Student in an Organized Health Care Education/Training Program; Visit Provider Family Medicine
DX: N17.9 Acute kidney failure, unspecified (principal); K52.1 Toxic gastroenteritis and colitis; T38.3X5A Adverse effect of insulin and oral hypoglycemic [antidiabetic] drugs, initial encounter; E11.65 Type 2 diabetes mellitus with hyperglycemia; Z79.4 Long term (current) use of insulin; E86.0 Dehydration; Z79.899 Other long term (current) drug therapy; Z79.84 Long term (current) use of oral hypoglycemic drugs; Z79.85 Long-term (current) use of injectable non-insulin antidiabetic drugs; E78.5 Hyperlipidemia, unspecified; I10 Essential (primary) hypertension; K21.9 Gastro-esophageal reflux disease without esophagitis; R11.2 Nausea with vomiting, unspecified
CPT/HCPCS: 36415; 36416; 80048; 80053; 82805; 82962; 83690; 87635; 96360; 96361; 96374; 99285; 81003; 83735; 85025; 99222; 99238; G0378; J2405

== ENCOUNTER 2022-07-19 01:33 | Outpatient (CLI) | payer MEDICARE, SELFPAY ==
[2022-07-19 08:40] LABS: Abs Immature Grans 0.04 10^3/uL (0.0-0.06); Absolute Basophil Count 0.04 10^3/uL (0.0-0.2); Absolute Lymphocyte Count 2.66 10^3/uL (1.2-3.4); Absolute Monocyte Count 0.59 10^3/uL (0.1-0.8); Absolute Neutrophil Count 2.49 10^3/uL (1.2-6.7); Basophils % 0.7; Eosinophils % 3.3; HGB 14.1 g/dL (13.5-17.5); Immature Grans % 0.7; Lymphocytes % 44.2; MCH 31.4 pg (27.0-33.0); MCHC 33.6 % (32.0-36.0); MCV 94 fL (80-95); MPV 10.5 fL (8.0-11.0); Monocytes % 9.8; Neutrophils % 41.3; Platelet Count 243 10^3/uL (130-400); RBC 4.49 10^6/uL (4.36-5.78); RDW 13.4 % (11.8-14.1); RDW-SD 46.2 fL; WBC 6.02 10^3/uL (4.4-10.8)
[2022-07-19 09:00] LABS: ALT 32 U/L (16-63); AST 20 U/L (15-37); Albumin 3.5 g/dL (3.4-5.0); Alkaline Phosphatase 108 U/L (46-116); Anion Gap 8.8 mmol/L (3-11); BUN 10 mg/dL (7-18); Bilirubin, Total 0.5 mg/dL (0.2-1.0); CO2 23.2 mmol/L (21.0-32.0); CREATININE 1.1 mg/dL (0.70-1.30); Calcium 8.8 mg/dL (8.5-10.1); Chloride 109 mmol/L (98-107); Estimated GFR 73.58 (mL/min/1.73m2); Glucose 149 mg/dL (74-106); Magnesium 1.6 mg/dL (1.8-2.4); Potassium 4.2 mmol/L (3.5-5.1); Sodium 141 mmol/L (136-145); Total Protein 6.6 g/dL (6.4-8.2)
== END 2022-07-19 01:34 | disposition home or self-care (01) ==
LOC: LBO 01:33
PROVIDERS: PCP Student in an Organized Health Care Education/Training Program; Visit Provider Student in an Organized Health Care Education/Training Program
DX: N17.9 Acute kidney failure, unspecified (principal); E11.65 Type 2 diabetes mellitus with hyperglycemia; Z79.4 Long term (current) use of insulin
CPT/HCPCS: 36415; 80053; 83735; 85025

== ENCOUNTER → 2022-12-16 09:23 | Outpatient (BNVA) | payer MEDICARE, SELFPAY | PROVIDERS: PCP Student in an Organized Health Care Education/Training Program; Referring Provider Student in an Organized Health Care Education/Training Program; Visit Provider Physical Therapy Assistant | DX: Z12.11 Encounter for screening for malignant neoplasm of colon (principal) ==

== ENCOUNTER 2022-12-27 08:19 | Day surgery (SDC) | payer MEDICARE, SELFPAY ==
--- NOTE | 2022-12-26 20:18 | W.PM.DSUDISC ---
Date of service: 12/27/22 Time of Service: 10:44 Discharge Plan Disposition Patient Disposition: Home Condition: Good Discharge Details Reason For Visit: screening colonoscopy Attending Provider: Trino Claire Primary Care Provider: Bella Duff Home Meds and New Rx's Prescriptions: Continued magnesium oxide 400 mg magnesium tablet 400 mg PO DAILY aspirin 81 mg tablet,delayed release (DR/EC) 81 mg PO DAILY Qty: 90 3RF (DME) FreeStyle Rik 2 [place] Misc See Rx Instructions .ROUTE .MEDSUPPLY Qty: 1 0RF Rx Instructions: As directed (DME) FreeStyle Rik 2 Sensor Kit See Rx Instructions .ROUTE .MEDSUPPLY Qty: 2 11RF Rx Instructions: As directed omeprazole 20 mg capsule,delayed release(DR/EC) 20 mg PO DAILY Qty: 30 0RF famotidine 20 mg tablet 20 mg PO BID Qty: 180 1RF Rx Instructions: Continue on H2Blkr 2/day as it ctlld reflux. Re-assess. dextrose [Glucose Gel] 40 % gel 10 g PO Q15M PRN (Reason: hypoglycemia) Qty: 112.5 1RF Rx Instructions: BEST DISPENSED/COVERED: until symptoms of low blood sugar are controlled (DME) CGM: Continuouis Glucose Monitoring Sensor/[place] System See Rx Instructions .Route .MEDSUPPLY Qty: 1 0RF Rx Instructions: For diabetes mellitus management with serious hyper and hypoglycemic episodes (DME) TENS UNIT See Rx Instructions .Route .MEDSUPPLY Qty: 1 0RF Rx Instructions: As directed per PT, expecting ongoing need. empagliflozin 25 mg tablet 25 mg PO DAILY Qty: 90 3RF Rx Instructions: increase from 10mg (07/23/21). (DME) pen needle, diabetic [Pen Needle] 31 gauge x 08/10 needle 1 ea Miscellaneous HS Qty: 100 3RF Rx Instructions: BD ultra fine pen needles 5 mm, 06/10 31G to administer Lantus Dx: E11.65 bupropion HCl [Wellbutrin XL] 150 mg tablet extended release 24 hr 150 mg PO QAM Qty: 90 3RF citalopram 20 mg tablet 10 mg PO DAILY Qty: 45 3RF cyclobenzaprine 10 mg tablet 10 mg PO BID PRN (Reason: muscle spasm) Qty: 30 1RF Rx Instructions: Use for acute mm spasms gabapentin 100 mg capsule 100 mg PO QHS Qty: 90 3RF insulin glargine [Lantus Solostar U-100 Insulin] 100 unit/mL (3 mL) insulin pen 38 unit Sub-Q HS Qty: 36 3RF Rx Instructions: to lower fasting blood sugar, control diabetes E11.65 (increase dose to 33units, and then in 1 week increase again to 36units if needed to maintain fasting blood sugar between 100-140mg/dl) (DME) FreeStyle Lite Strips Strip See Rx Instructions .Route Qty: 100 6RF Rx Instructions: As directed to check blood glucose up to 4x daily. to use with freestyle lite glucometer. To maintain HbA1C less than 9% DX: E11.9 Glucagon Emergency Kit (human) 1 mg recon soln 1 mg subcut Q20M PRN (Reason: hypoglycemia) Qty: 2 3RF Rx Instructions: until target blood sugar attained lisinopril 2.5 mg tablet 2.5 mg PO DAILY Qty: 90 3RF atorvastatin [Lipitor] 40 mg tablet 40 mg PO DAILY Qty: 90 3RF metformin 1,000 mg tablet See Rx Instructions .ROUTE .COMPLEX Qty: 180 3RF Dose Instruction: TAKE ONE TABLET BY MOUTH TWICE A DAY Rx Instructions: TAKE ONE TABLET BY MOUTH TWICE A DAY ibuprofen 600 mg tablet 600 mg PO PRN PRN Rx Instructions: acute back pain Discontinued bisacodyl [Dulcolax (bisacodyl)] 5 mg tablet,delayed release (DR/EC) 5 mg PO ONCE Qty: 4 0RF Rx Instructions: Take per colonoscopy instructions provided by ordering providers office polyethylene glycol 3350 17 gram/dose powder 17 g PO ONCE Qty: 238 0RF Rx Instructions: Take per colonoscopy instructions provided by ordering providers office Discharge Instructions Instructions: Hemorrhoids (GEN) Additional Instructions: Berto, we were able to do your colonoscopy today without any difficulty. I did not see any signs of any tumors or polyps. You have some very mild internal hemorrhoids, that I suspect are a little irritated from the bowel prep. I have attached a little bit of information here regarding hemorrhoid management. If you have any questions at all, please do not hesitate to contact me at any point. 1. If tolerated, consume a soft, low fiber diet for 1-2 days. 2[address] Do not drive, drink alcohol, operate machinery, make critical decisions, or do activities that require coordination or balance for 24 hours. 3. Because air was put into your colon during the procedure, expelling air from your rectum (passing gas or farting) is normal. 4. You may not have a bowel movement for 1-3 days because of the colonoscopy prep. This is normal. 5. Go directly to the emergency room if you notice any of the following: Develop chills (warm to touch), or if you have a thermometer and your temperature is above 101 Difficulty breathing or difficultly swallowing Persistent vomiting Severe abdominal pain, other than gas cramps Severe chest pain Black, tarry stools Any bleeding ? exceeding one tablespoon 6. Call your physician if the site where your intravenous was started becomes red, swollen, painful, and warm to touch. 7. Your physician has reviewed your pre-procedure medications. Please continue to take those medications as previously ordered. You will be given specific information/education regarding any changes to your medications before leaving. Stand Alone Forms: Anesthesia Discharge InstGus, Bianca Williamson (DSU) Activity:: Activity as Tolerated Diet:: As Tolerated Discharge Orders Discharge Orders: Discharge Order (Routine); Ordered 12/26/22 Ordered By: Trino Claire DS: Diagnosis Discharge Diagnosis (1) Screen for colon cancer: Status: Acute Asessment and Plan: Negative screening colonoscopy; consider another 1 in 10 years
--- NOTE | 2022-12-26 20:34 | W.COLOREPORT ---
Date of service: 12/27/22 Time of Service: 10:46 Colonoscopy Report Date of procedure: 12/27/22 Pre-op diagnosis general: screening colonoscopy Post-op diagnosis procedure note: other (Internal hemorrhoids) Procedure: Colonoscopy Surgeon: Trino Claire Anesthesia Type: General:No Airway Estimated blood loss (mL): 0 Pathology: none sent Complications: None Disposition: same day Indications: Berto is a67 years old and he needs a screening colonoscopy Prep: Miralax/Dulcolax Procedure Start Time: 10:14 Procedure End Time: 10:31 Retraction Time: 7 Findings: Grade 1 internal hemorrhoids. Otherwise negative screening colonoscopy Procedure Description: After the induction of monitored anesthetic care, and with the patient in left lateral decubitus position, I began by performing an external anorectal exam.? Perineum and skin were normal, as was the anal verge.? There was no evidence of external hemorrhoids.? Next, I performed a digital rectal exam.? I did not appreciate any abnormal findings.? Next, I advanced a colonoscope into the rectal vault.? I performed retroflexion.? There are grade 1 internal hemorrhoids.? Using insufflation, I then advanced the colonoscope beyond the rectal folds and into the sigmoid colon before advancing towards the cecum.? The quality of the prep was excellent.? The scope was noted to be in the cecum by identification of the ileocecal valve and appendiceal orifice.? I then began withdrawing the colonoscope using repeated irrigation as necessary for full evaluation of the colonic mucosa. ?Once the scope was withdrawn to the level of the rectum, great care was taken to examine portions of the rectal folds.? I did not see any signs of tumors, polyps, or any other abnormalities. Finally, the scope was withdrawn and the patient was brought to the same-day surgery recovery unit as the anesthetic wore off. ?The findings and instructions were shared with the patient prior to discharge.
[2022-12-27 08:30] VITALS: BP 106/80; PULSE 69; RESP 18; TEMP 36.3; O2SAT 99
[2022-12-27] MEDS: Lactated Ringers 1,000 ML 80 ML IV (09:03)
--- NOTE | 2022-12-27 09:34 | W.ANESPRE ---
General Info Date of Service Date Performed: 12/27/22 Height: 5 ft 9 in Weight: 89.5 kg Body Mass Index (BMI): 29.1 Surgical Procedure: Operation Date: 12/27/22 09:50 Proposed Procedure Side Surgeon madison Claire MD Meds Allergies and Home Medications Allergies Allergy/AdvReac Type Severity Reaction Status Date / Time semaglutide [From Ozempic] AdvReac Severe Other (See Verified 12/27/22 08:55 Comment) Home Medication Medication Instructions Recorded magnesium oxide 400 mg PO DAILY 05/27/20 TENS UNIT #1 ea 05/14/21 aspirin 81 mg tablet,delayed 81 mg PO DAILY #90 tab-caps 09/22/21 release pen needle, diabetic 31 gauge x ##100 10/23/2108/10 (Pen Needle) bupropion HCl 150 mg 24 hr tablet, 150 mg PO QAM #90 tabs 11/19/21 extended release (Wellbutrin XL) citalopram 20 mg tablet 10 mg PO DAILY #45 tabs 11/19/21 cyclobenzaprine 10 mg tablet 10 mg PO BID PRN muscle spasm #30 11/19/21 tabs gabapentin 100 mg capsule 100 mg PO QHS #90 caps 11/19/21 insulin glargine 100 unit/mL (3 38 unit (0.38 mL) subcut HS to 11/19/21 mL) subcutaneous pen (Lantus lower A1C, <9, DM, E11.65 #36 mL Solostar U-100 Insulin) famotidine 20 mg tablet 20 mg PO BID #180 tabs 03/23/22 flash glucose scanning reader #1 ea 03/23/22 (FreeStyle Rik 2 [place]) flash glucose sensor (FreeStyle #2 ea 03/23/22 Rik 2 Sensor kit) omeprazole 20 mg capsule,delayed 20 mg PO DAILY #30 caps 03/23/22 release empagliflozin 25 mg tablet 25 mg PO DAILY #90 tabs 06/23/22 blood sugar diagnostic (FreeStyle #100 ea 07/07/22 Lite Strips) glucagon 1 mg solution for 1 mg subcut Q20M PRN hypoglycemia 07/07/22 injection (Glucagon Emergency Kit) #2 ea ibuprofen 600 mg tablet 600 mg PO PRN PRN 07/09/22 CGM: Continuouis Glucose #1 ea 08/31/22 Monitoring Sensor/[place] System dextrose 40 % oral gel (Glucose 10 g PO Q15M PRN hypoglycemia 10/12/22 Gel) #112.5 grams lisinopril 2.5 mg tablet 2.5 mg PO DAILY #90 tab-caps 11/04/22 atorvastatin 40 mg tablet (Lipitor) 40 mg PO DAILY #90 tab-caps 11/30/22 metformin 1,000 mg tablet See Rx Instructions .Route 12/13/22 .COMPLEX #180 tabs Current Visit Medications: Current Medications Generic Name Dose Route Start Last Admin Trade Name Freq PRN Reason Stop Dose Admin Hyoscyamine Sulfate 0.125 mg 12/26/22 20:40 Hyoscyamine 0.125 Mg Sl/Oral/Chew SL 01/25/23 20:39 DIRECTED PRN Ringer's Solution 1,000 mls @ 80 mls/hr 12/27/22 06:00 12/27/22 09:03 IV 01/23/23 23:59 80 mls/hr INFUSION ELKIN Administration IV Miscellaneous Supplies 1 each 12/27/22 06:00 Iv Access IV 01/23/23 23:59 DIRECTED ELKIN Ondansetron HCl 4 mg 12/26/22 20:40 Ondansetron 4 Mg/2 Ml Vial IVP 01/25/23 20:39 Q4H PRN PRN Nausea / Vomiting Sodium Chloride 0 ml 12/27/22 06:00 Normal Saline Flush 10 Ml Syr IV 01/23/23 23:59 PRN PRN Sodium Chloride 0 ml 12/27/22 06:00 Normal Saline 10 Ml Vial IJ 01/23/23 23:59 DIRECTED PRN Sterile Water 0 ml 12/27/22 06:00 Water,Injection,Sterile 10 Ml Vial IJ 01/23/23 23:59 DIRECTED PRN PFSH Active Problems Active Problems: Problem Status Onset Code Screen for colon cancer Z12.11 Adverse effects of medication T50.905A Arthritis of right knee ~06/2022 M17.11 Type 2 diabetes mellitus with hyperglycemia 11/05/11 E11.65 Type 2 diabetes mellitus without complication 11/05/11 E11.9 DEO (acute kidney injury) N17.9 Uses self-applied continuous glucose monitoring device Z97.8 Insurance coverage problems Z59.89 Back pain due to injury M54.9 Nerve damage T14.8XXA Spinal stenosis at L4-L5 level M48.061 Muscle spasm of back M62.830 Back pain of lumbar region with sciatica M54.40 Hx of spinal surgery Z98.890 Stress due to illness of family member Z63.79 Difficulty sleeping G47.9 Functional tremor F45.8 Tremor R25.1 Adjustment disorder F43.20 Elevated TSH 02/12/15 R79.89 Increased thyroid stimulating hormone level 02/12/15 R79.89 Gastroesophageal reflux disease 05/12/07 K21.9 Obesity (BMI 30.0-34.9) 12/08/09 E66.9 Atrial arrhythmia 05/24/13 I49.8 Medical History Medical History DM w/o complication type II, uncontrolled (11/05/11) goal A1c<7.0; new dx 10/2011 Esophageal reflux (05/12/07) Archie SLEEP STUDY 04/2007, REFLUX INTERRUPTED SLEEP; no sleep apnea Hyperlipidemia (10/29/11) LDL GOAL <100 (diabetes) Hypertension Syncope (03/06/13) recurrent; Wolf: EKG L axis; 2wk event neg, neg Reveal Monitor implant (Morgan); Neg NCHead CT; neg Tilt table; nl EEG; NL ECHO Varicose veins of bilateral lower extremities with pain (09/2018) Hx varicosities, but recent Hx crazy itching .. he's itched to bleeding. Possible pain/irritation/inflamm signals perceived as pruritic (?) Trial Tyl, Ibu .. 10/06/18 Surgical History Surgical History Removal of Implant, deep (04/28/16) heart monitor removal - reveal loop recorder S/P hernia surgery S/P lumbar spine operation L3 removed? .. Tobacco Smoking/Tobacco Use Status: Never Passive smoking exposure: No Alcohol Alcohol Intake: never Details: No ETOH since 1989 Substance Use Substance use: Never Substance use type: does not use Vital Signs and Lab Results Point of Care Results Point of Care Results: Finger Stick Blood Glucose 117 12/27/22 08:39 Lab Results Blood Type / Crossmatch: No Data to Display Complete Blood Count: No Data to Display Complete Metabolic Panel: No Data to Display Liver Function Panel: No Data to Display Coagulation Panel: No Data to Display Cardiac Panel: No Data to Display Arterial Blood Gas: No Data to Display Venous Blood Gas: No Data to Display Pancreas Panel: No Data to Display Thyroid Panel: No Data to Display Infectious Disease: No Data to Display Blood Cultures: No Data to Display Toxicology Panel: No Data to Display Imaging and Studies Imaging and Studies Study information below may be from another EMR and interpreted by another provider. Please see original notes in EMR for more complete details. Echocardiogram Summary: ECHOCARDIOGRAM REPORT PATIENT NAME: RUFINO KLINE #: [id number] ADMITTING PROVIDER: KEVAN SANTA, MARKACCOUNT #: [id number] PRIMARY CARE PROVIDER:TOSHA HAMM MDDATE OF SERVICE: 05/01/13 : 1955 ____ IN PATIENT __X__ OUT-PATIENT ORDERING PHYSICIAN: Zaki Morgan M.D. HEIGHT: 5 FT 8 IN WEIGHT: 235 LBS BSA: 2.2 m2 STUDY INDICATIONS: Syncope, tachycardia. FINDINGS: LEFT VENTRICLE/LVEF: Normal size and systolic function, normal regional wall motion, LVEF 65%. RIGHT VENTRICLE: Normal size and systolic function. AORTIC VALVE: Trileaflet, opens well with trace regurgitation. MITRAL VALVE: Anatomically normal with mild regurgitation. TRICUSPID VALVE: Opens well with trace regurgitation. RSV/PA/RIGHT ATRIAL PRESSURE: RSV pressure 33 mmHg. PULMONIC VALVE: Mild regurgitation. ATRIA: Normal biatrial size. DIASTOLIC INDICES: Normal. GREAT VESSELS: Normal. PERICARDIUM: No effusion. SUMMARY: Rhythm is sinus at 55-60 bpm. The left ventricle shows normal size and systolic function, estimated LVEF 65%. Normal biatrial size. The mitral valve is anatomically normal with mild regurgitation. The aortic valve is trileaflet, opens well with trace regurgitation. The right ventricle is normal. Mild tricuspid regurgitation is present with normal pulmonary artery pressures. MEASUREMENTS: LVESD 36 mm LVEDD 52 mm IVS 10 mm PW 10 mm Ascending Aorta 38 mm AO. Root 40 mm AV mm AO Velocity m/sec LA 15 cm2 RA 13 cm2 Right atrial pressure mmHg AV-PK/M mmHg LVOT size mm LVOT gradient mmHg Deceleration time msec Isovolumic relaxation time msec E/A ratio IVC collapses ___X___ Yes No Dictated by: BETINA MATHUR MD Dictated:: [id number]<Electronically signed by BETINA MATHUR MD> [id number] Transcribed Date: 05/01/13 Transcribed Time: 1246By: This is privileged, confidential information, intended only for the provider named. Any use or distribution by any person other than this provider is strictly prohibited. If you receive this report in error, please notify us immediately at [phone] and return the original report to us at the address above. Thank you. Anesthesia Assessment and Plan Anesthesia History Personal History: No History of Anesthesia Complications Family History: No Family History of Anesthesia Complications Exercise Tolerance Exercise Tolerance: Metabolic Equivalents>4 Pertinent Negatives Pertinent Negatives: No Symptoms of GERD, No Major Cardiovascular Symptoms or Complaints, No Major Pulmonary Symptoms or Complaints and No History of CVA/TIA Cardiac & Pulmonary Exam Cardiac Exam: Normal S1/S2 Heart Sounds Pulmonary Exam: Clear Bilateral Breath Sounds Implantable Cardiac Device Does patient have a Pacemaker or an ICD?: No Airway Exam Known Difficult Airway: No Mallampati Class: 2 Mouth Opening: Normal (> 3cm) Thyromental Distance: Greater than 3 cm Neck Range of Motion: Full ROM Neck Circumference: Normal Teeth Condition: Normal Dentition ASA Classification ASA Score: ASA 2 Emergency Case?: No NPO Status NPO Status: NPO Clears >2 hours, Solids >8 hours Anesthesia Plan Resuscitation Status: Full Code Anesthesia Technique: General Anesthesia Airway Planned: Natural Airway Monitors Used: Standard Monitors
[2022-12-27 09:41] VITALS: BP 106/80; PULSE 69; RESP 18; TEMP 36.3; O2SAT 99
[2022-12-27 09:48] VITALS: BMI 29.1
[2022-12-27 10:34] VITALS: BP 131/80; PULSE 63; RESP 18; TEMP 36.1; O2SAT 96
[2022-12-27 10:52] VITALS: BP 111/76; PULSE 64; RESP 18; TEMP 36.5; O2SAT 99
--- NOTE | 2022-12-27 12:22 | W.ANESPOSTOP ---
Postoperative Evaluation Date, Time and Location Date Performed: 12/27/22 Time Performed: 10:34 Patient Location: Day Surgery Unit Vital Signs Most Recent Imported Vital Signs: Most Recent Vital Signs Temp Pulse Resp BP Pulse Ox 36.5 C 64 18 111/76 99 12/27/22 10:52 12/27/22 10:52 12/27/22 10:52 12/27/22 10:52 12/27/22 10:52 Pain Score Most Recent Pain Score: Most Recent Pain Score Pain Level 0 12/27/22 10:52 Assessment Mental Status: Awake (Alert & Oriented to Patient Baseline) Airway and Respiratory Function: Patent airway with normal (patient baseline) respiratory exam Cardiovascular Function: Hemodynamically Stable Hydration Status: Adequately Hydrated Nausea & Vomiting: No Nausea or Vomiting Pain: Pt. Denies Any Pain Peripheral Nerve Block: Patient did not receive a nerve block
== END 2022-12-27 11:19 | disposition home or self-care (01) ==
PROVIDERS: PCP Student in an Organized Health Care Education/Training Program; Visit Provider Surgery
PROC: 0DJD8ZZ Inspection of Lower Intestinal Tract, Via Natural or Artificial Opening Endoscopic (ICD-10-PCS; CPT 45378; principal; 2022-12-27 09:45)
DX: Z12.11 Encounter for screening for malignant neoplasm of colon (principal); K64.0 First degree hemorrhoids; E11.9 Type 2 diabetes mellitus without complications; Z79.4 Long term (current) use of insulin
CPT/HCPCS: G0121

== ENCOUNTER 2023-03-24 17:34 | Emergency (ER) | payer MEDICARE, SELFPAY ==
[2023-03-24 17:38] VITALS: BP 175/78; PULSE 79; RESP 18; TEMP 36.5; O2SAT 97
--- NOTE | 2023-03-24 18:23 | ED.GENADUL_ITS ---
Discharge Plan Disposition Patient Disposition: Home Discharge Details Clinical Impression: Neck muscle spasm Primary Care Provider: Bella Duff ED Provider: Candido Kay Home Meds and New Rx's Prescriptions: New methocarbamol 750 mg tablet 750 mg PO TID PRN (Reason: spasms) Qty: 30 0RF lidocaine [Lidoderm] 5 % adhesive patch,medicated 1 patch topical DAILY Qty: 10 0RF Rx Instructions: leave on most painful area for up to 12 hrs No Action magnesium oxide 400 mg magnesium tablet 400 mg PO DAILY aspirin 81 mg tablet,delayed release (DR/EC) 81 mg PO DAILY Qty: 90 3RF (DME) FreeStyle Rik 2 [place] Misc See Rx Instructions .ROUTE .MEDSUPPLY Qty: 1 0RF Rx Instructions: As directed (DME) FreeStyle Rik 2 Sensor Kit See Rx Instructions .ROUTE .MEDSUPPLY Qty: 2 11RF Rx Instructions: As directed dextrose [Glucose Gel] 40 % gel 10 g PO Q15M PRN (Reason: hypoglycemia) Qty: 112.5 1RF Rx Instructions: BEST DISPENSED/COVERED: until symptoms of low blood sugar are controlled (DME) CGM: [facility] Glucose Monitoring Sensor/[place] System See Rx Instructions .Route .MEDSUPPLY Qty: 1 0RF Rx Instructions: For diabetes mellitus management with serious hyper and hypoglycemic episodes insulin glargine [Lantus Solostar U-100 Insulin] 100 unit/mL (3 mL) insulin pen 38 unit Sub-Q HS Qty: 36 3RF Rx Instructions: to lower fasting blood sugar, control diabetes E11.65 (increase dose to 33units, and then in 1 week increase again to 36units if needed to maintain fasting blood sugar between 100-140mg/dl) (DME) TENS UNIT See Rx Instructions .Route .MEDSUPPLY Qty: 1 0RF Rx Instructions: As directed per PT, expecting ongoing need. empagliflozin 25 mg tablet 25 mg PO DAILY Qty: 90 3RF Rx Instructions: increase from 10mg (07/23/21). cyclobenzaprine 10 mg tablet 10 mg PO BID PRN (Reason: muscle spasm) Qty: 30 1RF Rx Instructions: Use for acute mm spasms gabapentin 100 mg capsule 100 mg PO QHS Qty: 90 3RF (DME) FreeStyle Lite Strips Strip See Rx Instructions .Route Qty: 100 6RF Rx Instructions: As directed to check blood glucose up to 4x daily. to use with freestyle lite glucometer. To maintain HbA1C less than 9% DX: E11.9 Glucagon Emergency Kit (human) 1 mg recon soln 1 mg subcut Q20M PRN (Reason: hypoglycemia) Qty: 2 3RF Rx Instructions: until target blood sugar attained lisinopril 2.5 mg tablet 2.5 mg PO DAILY Qty: 90 3RF atorvastatin [Lipitor] 40 mg tablet 40 mg PO DAILY Qty: 90 3RF metformin 1,000 mg tablet See Rx Instructions .ROUTE .COMPLEX Qty: 180 3RF Dose Instruction: TAKE ONE TABLET BY MOUTH TWICE A DAY Rx Instructions: TAKE ONE TABLET BY MOUTH TWICE A DAY famotidine 20 mg tablet 20 mg PO BID Qty: 180 1RF Rx Instructions: Continue on H2Blkr 2/day as it ctlld reflux. Re-assess. bupropion HCl [Wellbutrin XL] 150 mg tablet extended release 24 hr 150 mg PO QAM Qty: 90 3RF (DME) pen needle, diabetic [Pen Needle] 31 gauge x 5/16 needle 1 ea Miscellaneous HS Qty: 100 3RF Rx Instructions: BD ultra fine pen needles 5 mm, 3/16 31G to administer Lantus Dx: E11.65 ibuprofen 600 mg tablet 600 mg PO PRN PRN Rx Instructions: acute back pain Discharge Instructions Additional Instructions: Continue to warm compress, massage and gentle range of motion. Take medications as prescribed. Continue ibuprofen every 6 hours. Follow-up with PCP if symptoms are not improving. Discharge Data Discharge Date/Time-TO BE ENTERED AT DEPARTURE: 03/24/23 18:32 Medical Decision Making Emergent evaluation of muscle spasm of left side of neck. No evidence or history of trauma. No neurologic deficit. Based on examination, I do not suspect cervical radiculopathy or other cervical spine issue. He has a palpable muscle spasm on examination. Recommend lidocaine patch and Robaxin. NSAIDs as needed. Gentle range of motion and heat. Follow-up with PCP if symptoms do not resolve. Medical Records Medical records reviewed: Yes I reviewed the patient's medical records. HPI General Date/Time Provider Initiated Documentation: 03/24/23 18:22 . Limitations to Documentation: no limitations . Information obtained by: patient . HPI Narrative: 68-year-old gentleman with past medical history of type 2 diabetes presents for evaluation of neck pain. He reports left sided neck pain. Onset 2 days ago when he woke up. Denies any trauma. Denies any numbness, tingling or weakness. No radiation down his arm. No radiation up into his head. Reports pain is worse with range of motion. Has been taking ibuprofen and applying heat and cool compresses without significant relief Related Data Home Medications Medication Instructions Recorded Confirmed magnesium oxide 400 mg PO DAILY 05/27/20 01/25/23 TENS UNIT #1 ea 05/14/21 01/25/23 aspirin 81 mg tablet,delayed 81 mg PO DAILY #90 tab-caps 09/22/21 01/25/23 release cyclobenzaprine 10 mg tablet 10 mg PO BID PRN muscle spasm #30 11/19/21 01/25/23 tabs gabapentin 100 mg capsule 100 mg PO QHS #90 caps 11/19/21 01/25/23 flash glucose scanning reader #1 ea 03/23/22 01/25/23 (FreeStyle Rik 2 [place]) flash glucose sensor (FreeStyle #2 ea 03/23/22 01/25/23 Rik 2 Sensor kit) empagliflozin 25 mg tablet 25 mg PO DAILY #90 tabs 06/23/22 01/25/23 blood sugar diagnostic (FreeStyle #100 ea 07/07/22 01/25/23 Lite Strips) glucagon 1 mg solution for 1 mg subcut Q20M PRN hypoglycemia 07/07/22 01/25/23 injection (Glucagon Emergency Kit) #2 ea ibuprofen 600 mg tablet 600 mg PO PRN PRN 07/09/22 01/25/23 CGM: Continuouis Glucose #1 ea 08/31/22 01/25/23 Monitoring Sensor/[place] System dextrose 40 % oral gel (Glucose 10 g PO Q15M PRN hypoglycemia 10/12/22 01/25/23 Gel) #112.5 grams lisinopril 2.5 mg tablet 2.5 mg PO DAILY #90 tab-caps 11/04/22 01/25/23 atorvastatin 40 mg tablet (Lipitor) 40 mg PO DAILY #90 tab-caps 11/30/22 01/25/23 metformin 1,000 mg tablet See Rx Instructions .Route 12/13/22 01/25/23 .COMPLEX #180 tabs famotidine 20 mg tablet 20 mg PO BID #180 tabs 01/16/23 01/25/23 insulin glargine 100 unit/mL (3 38 unit (0.38 mL) subcut HS to 01/25/23 01/25/23 mL) subcutaneous pen (Lantus lower A1C, <9, DM, E11.65 #36 mL Solostar U-100 Insulin) bupropion HCl 150 mg 24 hr tablet, 150 mg PO QAM #90 tabs 03/02/23 extended release (Wellbutrin XL) pen needle, diabetic 31 gauge x ##100 03/18/23 5/16 (Pen Needle) lidocaine 5 % topical patch 1 patch topical DAILY #10 ea 03/24/23 (Lidoderm) methocarbamol 750 mg tablet 750 mg PO TID PRN spasms #30 tabs 03/24/23 Previous Rx's Medication Instructions Recorded TENS UNIT #1 ea 05/14/21 aspirin 81 mg tablet,delayed 81 mg PO DAILY #90 tab-caps 09/22/21 release cyclobenzaprine 10 mg tablet 10 mg PO BID PRN muscle spasm #30 11/19/21 tabs gabapentin 100 mg capsule 100 mg PO QHS #90 caps 11/19/21 flash glucose scanning reader #1 ea 03/23/22 (FreeStyle Rik 2 [place]) flash glucose sensor (FreeStyle #2 ea 03/23/22 Rik 2 Sensor kit) empagliflozin 25 mg tablet 25 mg PO DAILY #90 tabs 06/23/22 blood sugar diagnostic (FreeStyle #100 ea 07/07/22 Lite Strips) glucagon 1 mg solution for 1 mg subcut Q20M PRN hypoglycemia 07/07/22 injection (Glucagon Emergency Kit) #2 ea CGM: Continu[facility]is Glucose #1 ea 08/31/22 Monitoring Sensor/[place] System dextrose 40 % oral gel (Glucose 10 g PO Q15M PRN hypoglycemia 10/12/22 Gel) #112.5 grams lisinopril 2.5 mg tablet 2.5 mg PO DAILY #90 tab-caps 11/04/22 atorvastatin 40 mg tablet (Lipitor) 40 mg PO DAILY #90 tab-caps 11/30/22 metformin 1,000 mg tablet See Rx Instructions .Route 12/13/22 .COMPLEX #180 tabs famotidine 20 mg tablet 20 mg PO BID #180 tabs 01/16/23 insulin glargine 100 unit/mL (3 38 unit (0.38 mL) subcut HS to 01/25/23 mL) subcutaneous pen (Lantus lower A1C, <9, DM, E11.65 #36 mL Solostar U-100 Insulin) bupropion HCl 150 mg 24 hr tablet, 150 mg PO QAM #90 tabs 03/02/23 extended release (Wellbutrin XL) pen needle, diabetic 31 gauge x ##100 03/18/2308/10 (Pen Needle) lidocaine 5 % topical patch 1 patch topical DAILY #10 ea 03/24/23 (Lidoderm) methocarbamol 750 mg tablet 750 mg PO TID PRN spasms #30 tabs 03/24/23 Allergies Allergy/AdvReac Type Severity Reaction Status Date / Time semaglutide [From Ozempic] AdvReac Severe Other (See Verified 01/21/23 08:01 Comment) General Stated Complaint: Nk/Back Pain ZULY: 4 PFSH All Active Problems Neck muscle spasm (Acute) Screen for colon cancer (Acute) Adverse effects of medication (Acute) Arthritis of right knee (Acute ~06/2022) Moderate OA; worse medially (see x-ray) Type 2 diabetes mellitus with hyperglycemia (Chronic 11/05/11) goal A1c<7.0; new dx 10/2011; insulin added 10/2016 ... Out of control, A1C > 14 06/08/18, trmendous personal stressors ( ill, other).. not caring for himself; some level of denial with DM. Doubled insulin 06/08, need FBG values ... requesting extra coaching/support via CDE and SHANTAL triage.Appreciate great CDE support from EO, he is compliant and jeffrey insulin. FS q weekly, call to remind him... 08/02[x] 08/16[ ]. Reviewed #s, symptoms ... 08/18/18 A1C [ ] 09/08 DEO (acute kidney injury) (Acute) Elevated Creatinine, improved, 10/2021 Uses self-applied continuous glucose monitoring device (Acute) Working with [facility] [employer] .. Insurance coverage problems (Acute) Retiring 08/2021: which meds can be d/c'd? which can be generic ($0) with new Medicare-based insurance coverage.. Back pain due to injury (Acute) NOT the same as usual acute/chronic lumbar back MM spasms (spasms in different regiomn .. conc @ hip vs buttock).. upper extremety use now affecting lower back (as when original disc injury occurred, ??) Nerve damage (Acute) Spinal stenosis at L4-L5 level (Acute) Muscle spasm of back (Acute) Floored by back muscle spasm (stripping floor @ work and slipped) ... Went home, heating pad. Rested, but sudden spasm returned with need for ambulance and ED. Back pain of lumbar region with sciatica (Acute) Hx of spinal surgery (Chronic) Lumbar Spine (Dr. Galeas, [facility]), discs removed.. fusion (?) ((?)) Stress due to illness of family member (Acute) experienced CVA, left arm weakness .. improving with PT. Granddtr of COVID (DC). September 2020. Difficulty sleeping (Acute) Serious sleeping issues, shilpa when mulling about return to work situation. Functional tremor (Acute) Tremor (Acute) Resting, Action/Postural (?). Shaking vs pillrolling observed in clinic; report of shaking when trying to take a photo @ work. Adjustment disorder (Chronic) Irritable, and not sleeping. Increased workload with poor workplace support plus family stressors (COVID has affected extended family) . Elevated TSH (Chronic 02/12/15) Increased thyroid stimulating hormone level (Acute 02/12/15) Gastroesophageal reflux disease (Chronic 05/12/07) [place] [facility] STUDY 04/2007, REFLUX INTERRUPTED SLEEP; no sleep apnea; H. pylori Rx 09/2014 Obesity (BMI 30.0-34.9) (Chronic 12/08/09) GOAL 220-215 Atrial arrhythmia (Acute 05/24/13) Medical History Type 2 diabetes mellitus without complication (11/05/11) DM poorly controlled, Glargine d/'c and lantus started 11/12, Goal <7. DM again poorly controlled in May 2018 (A1C 14), but with terrific gains by August 2018 (A1C 8.7). Working closely with CDE. Continued good BG levels per random log brought in; still trying to coordinate all 3 of use to meet; Litzy Jolly eligibility? 10/06/18 Hypertension Varicose veins of bilateral lower extremities with pain (09/2018) Hx varicosities, but recent Hx crazy itching .. he's itched to bleeding. Possible pain/irritation/inflamm signals perceived as pruritic (?) Trial Tyl, Ibu .. 10/06/18 Syncope (03/06/13) recurrent; Maryann: EKG L axis; 2wk event neg, neg Reveal Monitor implant ([place]); Neg NCHead CT; neg Tilt table; nl EEG; NL ECHO Hyperlipidemia (10/29/11) LDL GOAL <100 (diabetes) Esophageal reflux (05/12/07) [place] [facility] STUDY 04/2007, REFLUX INTERRUPTED SLEEP; no sleep apnea DM w/o complication type II, uncontrolled (11/05/11) goal A1c<7.0; new dx 10/2011 Surgical History History of colonoscopy (~12/2022) S/P lumbar spine operation L3 removed? .. S/P hernia surgery Removal of Implant, deep (04/28/16) heart monitor removal - reveal loop recorder Family History Maternal Grandmother Diabetes Hyperlipidemia Hypertension Social History Smoking/Tobacco Use Status: Never Smoking risk assessment performed?: Yes Alcohol Intake: never Details: No ETOH since 1989 Drug use: Never Substance use type: does not use Adopted: No Caregiver/Support person: No Foster care: No Household members: family Housing: house Number of Children: 2 number of grandchildren: 1 Communication Needs: None Do you need help understanding health information?: Never current occupation: maintenance [id number] Pets and animals: Yes (2) Pets and animals: cat(s) Sexually active: Yes Do you think of yourself as: straight/heterosexual Current gender identity: male What is your relationship status?: How often do you talk on the phone with friends or family?: twice per week Do you belong to any clubs or organized social groups?: no Panel score (0-1 are the most socially isolated patients): 1 What type of physical activity do you participate in: walking Duration: 30-45 minutes/day Frequency: daily Laney/Orthodox: Yazdanism Seatbelt use: always Drive intox or ride w/intox driver medic: No Working smoke detector in home: Yes Fire extinguisher in home: Yes Carbon monox detector in home: Yes Victim of physical abuse: No Victim of emotional abuse: No Victim of sexual abuse: No Additional Social history: Unable to assess privatley Exam Narrative Exam Narrative: Review of Systems: All systems reviewed & are unremarkable except as noted in HPI and below Well-developed, no acute distress NACT PERRL, normal conjunctiva Left trapezius muscle spasm RRR Unlabored respiratory effort Nondistended abdomen Extremities w/o deformity, no cyanosis, no edema No rashes or lesions. no focal neurologic deficits Appropriate mood and affect Course Vital Signs Vital signs: Vital Signs Temperature 36.5 C 03/24/23 17:38 Pulse 79 03/24/23 17:38 Respiratory Rate 18 03/24/23 17:38 Blood Pressure 175/78 H 03/24/23 17:38 Pulse Oximetry 97 03/24/23 17:38 Temperature 36.5 C 03/24/23 17:38 Temperature Source Tympanic 03/24/23 17:38 Pulse 79 03/24/23 17:38 Respiratory Rate 18 03/24/23 17:38 Blood Pressure 175/78 H 03/24/23 17:38 Blood Pressure Position Sitting 03/24/23 17:38 Pulse Oximetry 97 03/24/23 17:38 Oxygen Delivery Method Room Air 03/24/23 17:38 Oxygen Flow Rate 0 03/24/23 17:38 Pain Level 10 03/24/23 17:38
== END 2023-03-24 18:32 | disposition home or self-care (01) ==
PROVIDERS: Emergency Provider Emergency Medicine; PCP Student in an Organized Health Care Education/Training Program
DX: M54.2 Cervicalgia (principal); M62.838 Other muscle spasm; E11.9 Type 2 diabetes mellitus without complications; I10 Essential (primary) hypertension; E78.5 Hyperlipidemia, unspecified; Z79.4 Long term (current) use of insulin; Z79.82 Long term (current) use of aspirin
CPT/HCPCS: 99282; 99283

== ENCOUNTER 2023-06-15 05:19 | Outpatient (CLI) | payer MEDICARE, SELFPAY ==
[2023-06-15 08:28] LABS: Anion Gap 13.7 mmol/L (3-11); BUN 16 mg/dL (7-18); CO2 21.3 mmol/L (21.0-32.0); CREATININE 1.2 mg/dL (0.70-1.30); Calcium 9.5 mg/dL (8.5-10.1); Chloride 107 mmol/L (98-107); Estimated GFR 65.87 (mL/min/1.73m2); Glucose 114 mg/dL (74-106); Potassium 3.7 mmol/L (3.5-5.1); Sodium 142 mmol/L (136-145)
== END 2023-06-15 05:20 | disposition home or self-care (01) ==
LOC: LBO 05:19
PROVIDERS: PCP Student in an Organized Health Care Education/Training Program; Visit Provider Student in an Organized Health Care Education/Training Program
DX: N17.9 Acute kidney failure, unspecified (principal); E11.65 Type 2 diabetes mellitus with hyperglycemia; Z79.4 Long term (current) use of insulin
CPT/HCPCS: 36415; 80048

== ENCOUNTER → 2023-08-23 00:19 | Outpatient (CLI) | payer MEDICARE, SELFPAY ==
--- NOTE | 2023-08-23 09:47 | DI.RAD_ITS ---
Exam(s) XR LUMBAR SPINE COMP W FLEX/EX EXAM: XR LUMBAR SPINE COMP W FLEX/EX CLINICAL HISTORY: confirm missing L2-3-4; re-evaluate DJD;? l5 compression,low back pain, m54. TECHNIQUE: 2D digital imaging was performed of the lumbar spine. Seven images were obtained. AP, l ateral, right oblique, left oblique, extension, flexion and L5-S1 spot views were obtained. COMPARISON: CR XR LUMBAR SPINE COMP W FLEX/EX from 04/30/2021 FINDINGS: BONES: No fracture or destructive lesion. Endplate osteophytes are seen at all levels of the lumbar s pine. Degenerative changes of the facets are seen at L4-5 and L5-S1. DISKS: There is disc space narrowing at all levels of the lumbar spine. ALIGNMENT: There is mild straightening of the lumbar lordosis. No subluxation is seen with flexion o r extension. No spondylolysis or spondylolisthesis. SOFT TISSUE: Vascular calcifications are present. IMPRESSION: Stable degenerative changes in the lumbar spine. No acute fracture or subluxation. DATA REPOSITORY: RADIATION DOSE DELIVERED:
== END ==
PROVIDERS: PCP Student in an Organized Health Care Education/Training Program; Visit Provider Student in an Organized Health Care Education/Training Program
DX: M51.16 Intervertebral disc disorders with radiculopathy, lumbar region (principal); Z98.890 Other specified postprocedural states
CPT/HCPCS: 72114

== ENCOUNTER 2023-11-08 02:37 | Outpatient (CLI) | payer MEDICARE, SELFPAY ==
[2023-11-08 07:33] LABS: HGB 14.9 g/dL (13.5-17.5)
[2023-11-08 09:32] LABS: ALT 26 U/L (16-63); AST 18 U/L (15-37); Albumin 3.8 g/dL (3.4-5.0); Alkaline Phosphatase 105 U/L (46-116); BUN 16 mg/dL (7-18); Bilirubin, Total 1.28 mg/dL (0.2-1.0); CREATININE 1.2 mg/dL (0.70-1.30); Calcium 9.1 mg/dL (8.5-10.1); Calculated LDL 57 mg/dL (<100); Chloride 107 mmol/L (98-107); Cholesterol 122 mg/dL (<200); Estimated GFR 65.87 (mL/min/1.73m2); Glucose 127 mg/dL (74-106); HDL Cholesterol 58 mg/dL (40-60); Sodium 143 mmol/L (136-145); Total Protein 6.9 g/dL (6.4-8.2); Triglyceride 36 mg/dL (<150)
== END 2023-11-08 02:38 | disposition home or self-care (01) ==
LOC: LBO 02:37
PROVIDERS: PCP Student in an Organized Health Care Education/Training Program; Visit Provider Student in an Organized Health Care Education/Training Program
DX: Z91.89 Other specified personal risk factors, not elsewhere classified (principal); N17.9 Acute kidney failure, unspecified; Z13.220 Encounter for screening for lipoid disorders; E11.65 Type 2 diabetes mellitus with hyperglycemia; Z79.4 Long term (current) use of insulin
CPT/HCPCS: 36415; 80053; 80061; 85018

== ENCOUNTER 2024-09-25 04:22 | Outpatient (CLI) | payer MEDICARE, SELFPAY ==
[2024-09-25 12:38] LABS: Abs Immature Grans 0.02 10^3/uL (0.0-0.06); HCT 47.7 % (40.0-50.0); HGB 15.7 g/dL (13.5-17.5); Immature Grans % 0.3 %; MCH 30.9 pg (27.0-33.0); MCHC 32.9 % (32.0-36.0); MCV 94 fL (80-95); MPV 11.2 fL (8.0-11.0); Platelet Count 294 10^3/uL (130-400); RBC 5.08 10^6/uL (4.36-5.78); RDW 13.4 % (11.8-14.1); RDW-SD 46.0 fL; WBC 7.55 10^3/uL (4.4-10.8)
[2024-09-25 12:49] LABS: ALT 32 U/L (16-63); AST 16 U/L (15-37); Albumin 3.8 g/dL (3.4-5.0); Alkaline Phosphatase 145 U/L (46-116); Anion Gap 12.2 mmol/L (3-11); BUN 14 mg/dL (7-18); Bilirubin, Total 0.7 mg/dL (0.2-1.0); CO2 22.8 mmol/L (21.0-32.0); Calcium 9.6 mg/dL (8.5-10.1); Chloride 107 mmol/L (98-107); Estimated GFR 92.45 (mL/min/1.73m2); Glucose 215 mg/dL (74-106); Lipase 33 U/L (<78); Potassium 4.1 mmol/L (3.5-5.1); Sodium 142 mmol/L (136-145); Total Protein 7.2 g/dL (6.4-8.2)
== END 2024-09-25 04:23 | disposition home or self-care (01) ==
PROVIDERS: PCP Family Medicine; Visit Provider Family Medicine
DX: K52.9 Noninfective gastroenteritis and colitis, unspecified (principal)
CPT/HCPCS: 36415; 80053; 83690; 85025